=== PATIENT | female | born 1940 | race Caucasian/White ===

== ENCOUNTER 2020-04-18 10:19 | Outpatient (CLI) | payer MEDICARE, SELFPAY ==
--- NOTE | ~2020-04-18 | MM_ITS ---
EXAMINATION: MM screening chitra LT w quinten HISTORY: Screening left mammogram, history of right mastectomy TECHNIQUE: Craniocaudal and mediolateral oblique 3-D tomosynthesis images were obtained and synthetic 2-D images were generated. CAD analysis was submitted and interpreted. COMPARISON: 01/13/2019, 01/09/2018, 12/30/2016 BREAST PARENCHYMAL COMPOSITION: There are scattered areas of fibroglandular density. FINDINGS: There is no evidence of suspicious mass, calcification, or architectural distortion to sugg est malignancy. There has been no suspicious interval change. IMPRESSION: 1. No mammographic evidence of malignancy. 2. Recommend routine screening mammography in one year. BI-RADS Category 1: Negative Reviewed, dictated and finalized at location A.
== END 2020-04-18 10:20 | disposition home or self-care (01) ==
PROVIDERS: PCP Family Medicine; Visit Provider Internal Medicine Hematology & Oncology
DX: Z12.31 Encounter for screening mammogram for malignant neoplasm of breast (principal)
CPT/HCPCS: 77063; 77067

== ENCOUNTER 2020-10-31 10:55 | Outpatient (CLI) | payer MEDICARE, SELFPAY ==
[2020-10-31 11:13] LABS: Basophils Percent Auto 0.6 % (0.2-1.2); Eosinophils Absolute Auto 0.1 K/mm3 (0-0.3); Eosinophils Percent Auto 1.2 % (0-4.4); Hemoglobin 14.2 g/dL (12.0-15.0); Immature Granulocyte Absolute 0.01 K/mm3 (0.00-0.031); Immature Granulocyte Percent A 0.1 % (0-0.5); Lymphocytes Absolute Auto 1.62 K/mm3 (0.9-3.2); Lymphocytes Percent Auto 23.6 % (18.3-44.2); Mean Corpuscular HGB Conc 32.3 g/dl (32-36); Mean Corpuscular Hemoglobin 30.1 pg (26-34); Mean Corpuscular Volume 93.4 fl (80-100); Mean Platelet Volume 10.9 fl (7.4-10.4); Monocytes Absolute Auto 0.5 K/mm3 (0.1-0.6); Monocytes Percent Auto 7.9 % (2.6-8.5); Neutrophils Absolute Auto 4.6 K/mm3 (1.3-6.7); Neutrophils Percent Auto 66.6 % (45.5-73.1); Platelet Count Result 270 k/mm3 (150-375); Red Blood Count 4.71 M/mm3 (4.2-5.4); Red Cell Distribution Width 12.9 % (11.5-14.5); White Blood Count 6.9 K/mm3 (4.5-10.0)
[2020-10-31 11:18] LABS: Blood Urea Nitrogen 17 mg/dL (8-26); Carbon Dioxide 31 mmol/L (22-30); Chloride 102 mmol/L (98-109); Estimated Glomerular Filt Rate > 60; Glucose 71 mg/dL (70-105); Sodium 142 mmol/L (138-146)
[2020-10-31 12:44] LABS: Alanine Aminotransferase 23 U/L (4-35); Albumin Level 4.5 g/dL (3.5-5.1); Alkaline Phosphatase 55 U/L (38-126); Anion Gap 7 mmol/L (8-16); Aspartate Amino Transferase 27 U/L (14-36); Bilirubin,Total 0.4 mg/dL (0.2-1.3); Blood Urea Nitrogen 17 mg/dL (7-17); Calcium 10.2 mg/dL (8.4-10.2); Carbon Dioxide 32 mmol/L (22-30); Chloride 103 mmol/L (98-107); Estimated Glomerular Filt Rate > 60; Glucose 70 mg/dL (65-105); Potassium 4.3 mmol/L (3.4-5.0); Sodium 142 mmol/L (137-145)
[2020-11-04 06:35] LABS: CA 15-3 14 U/mL (<32)
== END 2020-10-31 10:56 | disposition home or self-care (01) ==
LOC: ANHLAB 10:56
PROVIDERS: PCP Family Medicine; Visit Provider Internal Medicine Hematology & Oncology
DX: Z85.3 Personal history of malignant neoplasm of breast (principal); C50.911 Malignant neoplasm of unspecified site of right female breast
CPT/HCPCS: 36415; 80048; 80053; 85025; 86300

== ENCOUNTER 2021-04-19 09:40 | Outpatient (CLI) | payer MEDICARE, SELFPAY ==
--- NOTE | ~2021-04-19 | MM_ITS ---
EXAMINATION: MM screening chitra LT w quinten HISTORY: Screening left mammogram, history of right mastectomy TECHNIQUE: Craniocaudal and mediolateral oblique 3-D tomosynthesis images were obtained and synthetic 2-D images were generated. CAD analysis was submitted and interpreted. COMPARISON: 04/18/2020, 01/13/2019, 01/09/2018 BREAST PARENCHYMAL COMPOSITION: There are scattered areas of fibroglandular density. FINDINGS: There is no evidence of suspicious mass, calcification, or architectural distortion to sugg est malignancy. There has been no suspicious interval change. IMPRESSION: 1. No mammographic evidence of malignancy. 2. Recommend routine screening mammography while the patient remains in good health. BI-RADS Category 1: Negative Reviewed, dictated and finalized at location A. IMPRESSION: 1. No mammographic evidence of malignancy. 2. Recommend routine screening mammography while the patient remains in good he alth. BI-RADS Category 1: Negative
== END 2021-04-19 09:41 | disposition home or self-care (01) ==
LOC: ANHIMG 09:43
PROVIDERS: PCP Family Medicine; Visit Provider Internal Medicine Hematology & Oncology
DX: Z12.31 Encounter for screening mammogram for malignant neoplasm of breast (principal)
CPT/HCPCS: 77063; 77067

== ENCOUNTER 2021-07-24 10:12 | Outpatient (CLI) | payer MEDICARE, SELFPAY ==
--- NOTE | ~2021-07-24 | DEXA_ITS ---
Bone Density Report Name: Kirstin Reyez Age: 81 Sex: Female Ethnicity: White Date of : 1940 Indication: osteopenia; monitoring treatment; height loss; prior fracture; cancer; hysterectomy; postmenopausal Referring Provider: Wes Luque Study: Bone densitometry was performed. Exam Date: July 24, 2021 Accession number: [id number] Bone Density: Region BMD T-score Z-score Classification AP Spine (L2, L3) 1.008 -0.5 2.4 Normal Femoral Neck (Left) 0.612 -2.1 0.3 Osteopenia Total Hip (Left) 0.773 -1.4 0.9 Osteopenia Total Hip Bilateral Avg 0.778 -1.4 0.9 Osteopenia Femoral Neck (Right) 0.570 -2.5 -0.1 Osteoporosis Total Hip (Right) 0.782 -1.3 0.9 Osteopenia World Health Organization criteria for BMD impression classify patients as: Normal (T-score at or above -1.0), Osteopenia (T-score between -1.0 and -2.5), or Osteoporosis (T-score at or below -2.5). 10-year Fracture Risk: FRAX not reported because: Some T-score for Spine Total or Hip Total or Femoral Neck at or below -2.5 Previous Exams: Region Exam Age BMD T-score BMD Change BMD Change Date g/cm2 vs Baseline vs Previous AP Spine(L2, L3) 07/24/2021 81 1.008 -0.5 0.115(12.9%)# 0.120(13.5%)* 05/02/2017 77 0.888 -1.5 -0.005(-0.5%)# -0.005(-0.5%)# 08/31/2010 70 0.893 -1.5 Total Hip(Left) 07/24/2021 81 0.773 -1.4 -0.063(-7.6%)# 0.023(3.1%) 05/02/2017 77 0.750 -1.6 -0.086(-10.3%) -0.054(-6.8%)# 08/12/2013 73 0.804 -1.1 -0.032(-3.8%)# -0.032(-3.8%)# 08/31/2010 70 0.836 -0.9 Total Hip(Right) 07/24/2021 81 0.782 -1.3 -0.082(-9.4%)# 0.050(6.9%)* 05/02/2017 77 0.731 -1.7 -0.132(-15.3%) -0.099(-11.9%) 08/12/2013 73 0.830 -0.9 -0.033(-3.8%)# -0.033(-3.8%)# 08/31/2010 70 0.863 -0.6 *Denotes significance at 95% confidence level, LSC for AP Spine = 0.022 g/cm2, LSC for Total Hip = 0.027 g/cm2 Clinical Information Provided by Patient: Has had a low trauma fracture Is being treated for osteoporosis Has used the following medications: Vitamin D Has the following medical conditions: Cancer, Hysterectomy Patient maximum height was 63.5 Menopause Age: 36 Onset of menses at age 14 Number of children 3 Impression: The patient has established osteoporosis, based on the Right Femoral Neck T-score and the existence of a prior fracture. The patient has risk factors, including: previous fracture. No significant bone loss was observed. Discussion:
== END 2021-07-24 10:13 | disposition home or self-care (01) ==
LOC: ANHIMG 10:15
PROVIDERS: PCP Family Medicine; Visit Provider Internal Medicine Hematology & Oncology
DX: M81.6 Localized osteoporosis [Lequesne] (principal); M85.852 Other specified disorders of bone density and structure, left thigh
CPT/HCPCS: 77080

== ENCOUNTER 2022-04-23 16:17 | Outpatient (CLI) | payer MEDICARE, SELFPAY ==
--- NOTE | ~2022-04-23 | MM_ITS ---
EXAMINATION: MM screening chitra LT w quinten HISTORY: Screening left mammogram, history of right mastectomy TECHNIQUE: Craniocaudal and mediolateral oblique 3-D tomosynthesis images were obtained and synthetic 2-D images were generated. CAD analysis was submitted and interpreted. COMPARISON: 04/19/2021, 04/18/2020, 01/13/2019 BREAST PARENCHYMAL COMPOSITION: There are scattered areas of fibroglandular density. FINDINGS: There is no suspicious mass, calcification, or architectural distortion to suggest malignan cy. There has been no suspicious interval change. IMPRESSION: 1. No mammographic evidence of malignancy. 2. Recommend routine screening mammography while the patient remains in good health. BI-RADS Category 1: Negative Reviewed, dictated and finalized at location A. IMPRESSION: 1. No mammographic evidence of malignancy. 2. Recommend routine screening mammography while the patient remains in good he alth. BI-RADS Category 1: Negative
== END 2022-04-23 16:18 | disposition home or self-care (01) ==
PROVIDERS: PCP Family Medicine; Visit Provider Internal Medicine Hematology & Oncology
DX: Z12.31 Encounter for screening mammogram for malignant neoplasm of breast (principal)
CPT/HCPCS: 77063; 77067

== ENCOUNTER 2022-10-21 18:33 | Observation (INO) | payer MEDICARE, SELFPAY ==
[2022-10-21] VITALS (24 sets, daily range): BP systolic 130–189; BP diastolic 66–94; PULSE 68–84; RESP 12–28; TEMP 36.6; O2SAT 94–100; BMI 22.0
--- NOTE | ~2022-10-21 | MR_ITS ---
EXAMINATION: MR brain/brain stem wo/w con DATE: 10/22/2022 10:23 INDICATION: Syncope. TECHNIQUE: Magnetic resonance imaging (MRI) of the brain and brainstem was performed without and with 10 mL MultiHance intravenous contrast. COMPARISON: None. FINDINGS: There is a 4.1 x 3.9 x 2.7 cm enhancing extra-axial mass inferior to the upper lobes at the midline, consistent with a meningioma. An area of decreased T2*weighted signal intensity in the mass may be calcification. There is no acute ischemic infarct or intracranial hemorrhage. There are scatt ered areas of nonspecific increased T2-weighted signal intensity in the cerebral white matter, which is within normal limits for the patient's age. The ventricles are normal in size. There is mucosal th ickening in the paranasal sinuses. The orbits are normal. The mastoid air cells are normal. 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 Reviewed, dictated and finalized at location A. IVING COORDINATOR
--- NOTE | ~2022-10-21 | US_ITS ---
EXAMINATION: US carotid duplex BI DATE: 10/22/2022 10:45 INDICATION: Syncope. TECHNIQUE: Grayscale, color Doppler, and pulsed Doppler images of the cervical carotid arteries were obtained. The degree of vessel stenosis is placed in one of the following categories: normal, <50%, 5 0-69%, >=70% but less than near-occlusion, near-occlusion, or total occlusion. Note that percent sten osis relative to normal distal artery lumen diameter is indirectly measured from velocity measurement s as described by Juan, et al. Radiology 2003; 229:340-346. COMPARISON: None. FINDINGS: RIGHT: The right common carotid artery (CCA) peak systolic velocity (PSV) is 111 cm/s. The right internal ca rotid artery (ICA) PSV is 78 cm/s. The right ICA end-diastolic velocity (EDV) is 16 cm/s. The right I CA/CCA PSV ratio is 0.7. Grayscale and color Doppler images yield an estimate of <50% diameter reduct ion from plaque in the ICA. There is antegrade flow in the right vertebral artery. LEFT: The left CCA PSV is 125 cm/s. The left ICA PSV is 85 cm/s. The left ICA EDV is 17 cm/s. The left ICA/ CCA PSV ratio is 0.7. Grayscale and color Doppler images yield an estimate of <50% diameter reduction from plaque in the ICA. There is antegrade flow in the left vertebral artery. IMPRESSION: 1. <50% stenosis in the right internal carotid artery. 2. <50% stenosis in the left internal carotid artery. Reviewed, dictated and finalized at location A. ST PRODUCTS GATHERER
--- NOTE | ~2022-10-21 | XR_ITS ---
EXAMINATION: XR chest 1V portable Exam Date/Time: 10/21/2022 19:09 RETAIL LEASING AGENT HISTORY: syncope Comparison: 11/24/2014. RESULT: Lines, tubes, and devices: Status post vertebroplasty. Lungs and pleura: Low lung volumes. Mild crowding. Senescent changes. Cardiomediastinal silhouette: Stable. Other: No acute osseous or upper abdominal finding. IMPRESSION: No acute cardiopulmonary process. Reviewed, dictated and finalized at location K. [place] LEASING AGENT
--- NOTE | 2022-10-21 18:35 | ECG_ITS ---
Measurements Intervals [place] Rate: 75 P: 45 FL: 160 QRS: -9 QRSD: 96 T: 27 QT: 382 QTc: 428 Interpretive Statements SINUS RHYTHM POSSIBLE LEFT ATRIAL ENLARGEMENT [-0.1mV P-WAVE IN V1/V2] POSSIBLE LEFT VENTRICULAR HYPERTROPHY [VOLTAGE CRITERIA PLUS LAE OR QRS WIDENING] NO PREVIOUS ECG AVAILABLE FOR COMPARISON Electronically Signed On 10-22-2022 11:31:06 OVERLOCK SEWING MACHINE OPERATOR by Jessica Hill M.D.
--- NOTE | 2022-10-21 19:09 | ED.SYNCOPE ---
HPI - Syncope General Chief Complaint: Syncope Stated Complaint: syncope Time Seen by Provider: 10/21/22 18:59 History of Present Illness HPI narrative: Patient is an 82-year-old female with a history of dementia, hyperlipidemia, hypertension presenting with syncope. Most of the history is gathered from the patient's family who is at bedside. They state that she had a syncopal episode this morning that was witnessed by staff at her nursing facility. States that at that time a attributed it to dehydration. States that the room was very warm at this time. Patient then had another witnessed syncopal event while laying in bed this evening. She reportedly suddenly lost consciousness and her eyes rolled in the back of her head. This episode resolved in less than a minute. Currently, the patient denies complaints. She is A&O x1 which is her baseline. Related Data Home Medications Medication Instructions Recorded Confirmed acetaminophen 500 mg tablet 1,000 mg PO Q6H PRN Pain 10/21/22 10/21/22 (Acetaminophen Extra Strength) anastrozole 1 mg tablet 1 mg PO DAILY 10/21/22 10/21/22 atorvastatin 10 mg tablet 20 mg PO DAILY 10/21/22 10/21/22 cholecalciferol (vitamin D3) 50 50 mcg PO BID 10/21/22 10/21/22 mcg (2,000 unit) capsule cyanocobalamin (vitamin B-12) 500 500 mcg PO DAILY 10/21/22 10/21/22 mcg tablet donepezil 10 mg tablet 10 mg PO HS 10/21/22 10/21/22 magnesium 200 mg tablet 400 mg PO DAILY 10/21/22 10/21/22 melatonin 3 mg tablet 3 mg PO HS PRN Insomnia 10/21/22 10/21/22 memantine 10 mg tablet 10 mg PO BID 10/21/22 10/21/22 omeprazole 20 mg capsule,delayed 20 mg PO HS 10/21/22 10/21/22 release sertraline 25 mg tablet 25 mg PO DAILY 10/21/22 10/21/22 Allergies Allergy/AdvReac Type Severity Reaction Status Date / Time alendronate sodium Allergy Unknown Rash Verified 02/19/22 11:25 codeine Allergy Unknown Unknown Verified 02/19/22 11:25 tamoxifen Allergy Unknown Unknown Verified 02/19/22 11:25 Review of Systems Review of Systems: ROS unobtainable: Yes other (underlying dementia) PMFSH Past Medical History Medical History Adult BMI 19-24 kg/sq m Family History Family History Mother Cerebrovascular accident Sibling Family history of diabetes mellitus in first degree relative Family history of malignant neoplasm of breast in first degree relative Family history of heart disease in male family member before age 55 Emphysema lung Father Family history of heart disease in male family member before age 55 Social History Social History Smoking status: Never smoker Second hand tobacco smoke exposure: Yes Alcohol intake: never Substance use: never Substance use type: does not use Living arrangements: alone Occupation/Education: retired 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 HEAD: Normocephalic, atraumatic. EYES: PERRLA and EOMI. ENT: Nares clear, no rhinorrhea or epistaxis. Mucous membranes moist. NECK: Supple. CHEST: Clear to auscultation. No respiratory distress. HEART: Regular rate and rhythm. No murmur heard. Normal peripheral pulses. ABDOMEN: Soft, nontender, nondistended EXTREMITIES: Normal range of motion. No edema. SKIN: Warm, dry, no rash. NEURO: No focal deficits. Alert and oriented x1 which is baseline. PSYCH: Normal mood and affect. Course Vital Signs Vital signs: Vital Signs Pulse Rate 75 10/21/22 18:46 Respiratory Rate 12 10/21/22 18:46 Pulse Oximetry 96 10/21/22 18:46 Temperature 97.2 F L 10/22/22 20:57 Pulse Rate 64 10/22/22 20:57 Respiratory Rate 16 10/22/22 20:57 Blood Pressure 145/72 H 10/22/22
[2022-10-21 19:37] LABS: Basophils Percent Auto 0.2 % (0.2-1.2); Eosinophils Absolute Auto 0.1 K/mm3 (0-0.3); Eosinophils Percent Auto 0.7 % (0-4.4); Immature Granulocyte Absolute 0.02 K/mm3 (0.00-0.031); Immature Granulocyte Percent A 0.2 % (0-0.5); Lymphocytes Absolute Auto 1.31 K/mm3 (0.9-3.2); Lymphocytes Percent Auto 15.3 % (18.3-44.2); Mean Corpuscular HGB Conc 32.5 g/dl (32-36); Mean Corpuscular Hemoglobin 29.8 pg (26-34); Mean Corpuscular Volume 91.7 fl (80-100); Mean Platelet Volume 11.4 fl (7.4-10.4); Monocytes Percent Auto 11.3 % (2.6-8.5); Neutrophils Absolute Auto 6.2 K/mm3 (1.3-6.7); Neutrophils Percent Auto 72.3 % (45.5-73.1); Platelet Count Result 183 k/mm3 (150-375); Red Blood Count 4.36 M/mm3 (4.2-5.4); Red Cell Distribution Width 12.6 % (11.5-14.5); White Blood Count 8.6 K/mm3 (4.5-10.0)
[2022-10-21] MEDS: SODIUM CHLORIDE 0.9% IV 1,000 ML 999 ML IV CONT (19:40)
[2022-10-21 19:46] LABS: Partial Thromboplastin Time 26.4 SECONDS (22.3-36.8); Prothrombin Time 13.2 Seconds (11.1-14.7)
[2022-10-21 19:54] LABS: Alanine Aminotransferase 22 U/L (6-35); Albumin Level 4.2 g/dL (3.5-5.1); Alkaline Phosphatase 70 U/L (38-126); Anion Gap 7 mmol/L (8-16); Aspartate Amino Transferase 24 U/L (14-36); Bilirubin,Total 0.5 mg/dL (0.2-1.3); Blood Urea Nitrogen 16 mg/dL (7-17); Calcium 9.6 mg/dL (8.4-10.2); Carbon Dioxide 29 mmol/L (22-30); Chloride 103 mmol/L (98-107); Estimated Glomerular Filt Rate > 60; Glucose 109 mg/dL (65-110); Potassium 4.3 mmol/L (3.4-5.0); Sodium 139 mmol/L (137-145)
[2022-10-21 20:11] LABS: NT Pro B Type Natriuretic Pept 285 pg/mL (19.9-100); Troponin I < 0.012 ng/mL (0.000-0.034)
[2022-10-21 20:31] LABS: Appearance Urine Clear (Clear); Bacteria Urine None Seen /hpf; Bilirubin Urine Negative (Negative); Blood Urine 2+ (Negative); Color Urine Yellow (Yellow); Glucose Urine UA Negative (Negative); Ketones Urine Negative (Negative); Leukocyte Esterase Ur Trace LEU/UL (Negative); Nitrate Urine Negative (Negative); Non Pathogenic Casts 0-2; Protein Urine Negative (Negative); Specific Grav Ur 1.008 (1.001-1.035); Squamous Epithelial Cell Urine None seen /hpf (Few); Urobilinogen Urine 0.2 mg/dL (<2.0); WBC Urine 0-5 /hpf
[2022-10-21 20:39] LABS: Add Urine Microscopic? YES
--- NOTE | 2022-10-21 21:12 | PM.IMHP ---
H&P: HPI History of Present Illness Date/Time: 10/21/22 21:12 Chief Complaint: ALTERED MENTAL STATUS [facility] Past Medical History Medical History Adult BMI 19-24 kg/sq m Family History Family History Mother Cerebrovascular accident Sibling Family history of diabetes mellitus in first degree relative Family history of malignant neoplasm of breast in first degree relative Family history of heart disease in male family member before age 55 Emphysema lung Father Family history of heart disease in male family member before age 55 Social History Social History Smoking status: Never smoker Second hand tobacco smoke exposure: Yes Alcohol intake: never Substance use: never Substance use type: does not use Living arrangements: alone Occupation/Education: retired 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, 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 Spiritual care concerns: No Meds Home Medications and Allergies Home Medications Medication Instructions Recorded Confirmed Type benazepril 10 mg tablet 10 mg PO DAILY #90 tabs 08/05/22 10/21/22 Rx acetaminophen 500 mg tablet 1,000 mg PO Q6H PRN Pain 10/21/22 10/21/22 History (Acetaminophen Extra Strength) anastrozole 1 mg tablet 1 mg PO DAILY 10/21/22 10/21/22 History atorvastatin 10 mg tablet 20 mg PO DAILY 10/21/22 10/21/22 History cholecalciferol (vitamin D3) 50 50 mcg PO BID 10/21/22 10/21/22 History mcg (2,000 unit) capsule cyanocobalamin (vitamin B-12) 500 500 mcg PO DAILY 10/21/22 10/21/22 History mcg tablet donepezil 10 mg tablet 10 mg PO HS 10/21/22 10/21/22 History magnesium 200 mg tablet 400 mg PO DAILY 10/21/22 10/21/22 History melatonin 3 mg tablet 3 mg PO HS PRN Insomnia 10/21/22 10/21/22 History memantine 10 mg tablet 10 mg PO BID 10/21/22 10/21/22 History omeprazole 20 mg capsule,delayed 20 mg PO HS 10/21/22 10/21/22 History release sertraline 25 mg tablet 25 mg PO DAILY 10/21/22 10/21/22 History Allergies Allergy/AdvReac Type Severity Reaction Status Date / Time alendronate sodium Allergy Unknown Rash Verified 02/19/22 11:25 codeine Allergy Unknown Unknown Verified 02/19/22 11:25 tamoxifen Allergy Unknown Unknown Verified 02/19/22 11:25 Vital Signs Vital Signs - 24 hr 10/21/22 19:26 10/21/22 18:46 10/21/22 19:00 Pulse Rate 84 75 78 Respiratory Rate 12 17 Blood Pressure Pulse Oximetry 96 97 10/21/22 19:23 10/21/22 19:30 10/21/22 19:46 Pulse Rate 74 70 69 Respiratory Rate 19 22 H 18 Blood Pressure Pulse Oximetry 96 95 96 10/21/22 20:03 10/21/22 20:19 10/21/22 20:30 Pulse Rate 70 77 74 Respiratory Rate 14 18 13 Blood Pressure 130/66 Pulse Oximetry 97 100 97 10/21/22 20:50 10/21/22 21:06 Pulse Rate 74 81 Respiratory Rate 26 H 28 H Blood Pressure 189/87 H Pulse Oximetry 97 97 Exam Const: General: comfortable, no acute distress, well developed, alert, awake and average body habitus Nutritional Appearance: average body habitus Orientation/consciousness: patient oriented x3 HENMT: Head: normal to inspection, normocephalic and atraumatic Ears: hearing grossly normal bilaterally Face/Nose/Sinus: normal facial exam Face and sinus: normal facial exam Eyes: General: appearance normal, both eyes and all related structures Pupils: Equal, round and reactive pupils present EOM: EOMs intact bilaterally Neck: Neck: full ROM, no lymphadenopathy and no JVD Thyroid: thyroid normal Lymphatic: no lymphadenopathy noted Resp: Effort & Inspection: normal respiratory effort and able to speak in complete sentences Auscultation: clear to auscultation bilaterally Cardio: Jugular venous distension: no JVD Rate: regular rate Rhythm: regular rhythm Heart sounds: S1 normal heart sound present and S2 normal heart erna
[2022-10-21 22:20] LABS: SARS-CoV-2 RNA PCR Negative
[2022-10-21 23:10] LABS: Troponin I < 0.012 ng/mL (0.000-0.034)
--- NOTE | 2022-10-21 23:57 | PC.NURSE ---
This patient, Kirstin Reyez, was admitted to Medical Room 347-01. Patient/family oriented to hospital policies and general routines including ID bracelet, bed and alarms, visiting hours, pain management, procedures, bathroom and other care routines, personal items, smoking policy, room service/diet, and visiting hours. Information on how to activate the Rapid Response Team has been discussed. Patient/Family are encouraged to report perceived risks to care and to ask questions if they do not understand what they are told or what they should do.
[2022-10-22] VITALS (8 sets, daily range): BP systolic 145–168; BP diastolic 70–72; PULSE 64–86; RESP 16–18; TEMP 36.2–36.7; O2SAT 96–98
--- NOTE | 2022-10-22 | ECHO_ITS ---
Patient Info Name: Kirstin Reyez Age: 82 years : 1940 Gender: Female Ht: 64 in Wt: 128 lbs BSA: 1.62 m2 HR: 68 bpm BP: 158 / 72 mmHg Heart Rhythm: Sinus Rhythm Technical Quality: Fair Exam Date: 10/22/2022 7:39 AM Exam Location: [facility] Pulmonary Patient Status: Inpatient Admit Date: 10/21/2022 Staff Ordering Physician: Sudheer Blackmon MD Management Psychologist: Minerva Chase RDCS Attending Provider: Sudheer Blackmon MD Referring Physician: Neymar HALEY; Exam Type: CA echo doppler color flow Study Info Indications R55 - Syncope and collapse Complete two-dimensional, color flow and Doppler transthoracic echocardiogram is performed. Summary 1. Complete two-dimensional, color flow and Doppler transthoracic echocardiogram is performed. 2. Left ventricular chamber dimension is normal. 3. Left ventricular systolic function is normal, estimated at 65-70%. 4. The left ventricular diastolic function is grade I diastolic dysfunction. 5. Right ventricular systolic function is normal. 6. There is moderate aortic valve sclerosis. 7. There is mild to moderate aortic valve regurgitation. 8. The mitral valve has thickened leaflets. 9. There is mild mitral valve regurgitation. 10. There is mild tricuspid valve regurgitation. 11. There is mild to moderate pulmonic regurgitation. 12. Normal inferior vena cava with >50% collapse upon inspiration consistent with normal right atrial pressure, 3 mmHg. Left Ventricle Left ventricular chamber dimension is normal. Left ventricular systolic function is normal, estimated at 65-70%. There is no increased left ventricular wall thickness. The left ventricular diastolic function is grade I diastolic dysfunction. Right Ventricle Right ventricular chamber dimension is normal. Right ventricular systolic function is normal. Left Atria Left atrial chamber dimension is normal. Right Atria Right atrial chamber dimension is normal. Atrial Septum Intact interatrial septum visualized by color flow imaging. Aortic Valve The aortic valve is trileaflet. There is moderate aortic valve sclerosis. There is no aortic valve stenosis. There is mild to moderate aortic valve regurgitation. Pulmonic Valve The pulmonic valve is not well visualized. There is mild to moderate pulmonic regurgitation. Mitral Valve The mitral valve has thickened leaflets. There is no mitral valve stenosis. There is mild mitral valve regurgitation. Tricuspid Valve There is mild tricuspid valve regurgitation. Pericardium/Pleural There is no pericardial effusion. Inferior Vena Cava Normal inferior vena cava with >50% collapse upon inspiration consistent with normal right atrial pressure, 3 mmHg. Aorta The aortic root size at the sinus of Valsalva is normal. Left Ventricular Outflow Tract Name Value Normal LVOT 2D LVOT Diameter 2.0 cm LVOT Doppler LVOT Peak Gradient 3 mmHg LVOT Mean Gradient 1 mmHg LVOT VTI 21 cm LVOT VTI/AV VTI Ratio 0.6 L
[2022-10-22 02:25] LABS: Troponin I < 0.012 ng/mL (0.000-0.034)
[2022-10-22] MEDS: ANASTROZOLE (*CHEMO) 1 MG TABLET PO (08:52)
[2022-10-22] MEDS: MEMANTINE 10 MG TABLET PO ×2 (08:52→17:58)
[2022-10-22] MEDS: ATORVASTATIN 10 MG TABLET 20 MG PO (08:52)
[2022-10-22] MEDS: CHOLECALCIFEROL 1,000 UNITS TABLET 2000 UNITS PO ×2 (08:52→17:58)
[2022-10-22] MEDS: CYANOCOBALAMIN 500 MCG TABLET PO (08:53)
[2022-10-22] MEDS: lisinopriL 10 MG TABLET PO (08:53)
[2022-10-22] MEDS: SERTRALINE HCL 25 MG TABLET PO (08:53)
--- NOTE | 2022-10-22 10:53 | PM.IMPN ---
Progress Note: A&P Assessment and Plan (1) Dementia with behavioral disturbance: Code(s): F03.91 - Unspecified dementia, unspecified severity, with behavioral disturbance Status: Acute Assessment and Plan: Appears to be baseline (2) Mixed hyperlipidemia: Code(s): E78.2 - Mixed hyperlipidemia Status: Acute Assessment and Plan: Continue home meds (3) Essential hypertension: Code(s): I10 - Essential (primary) hypertension Status: Acute Assessment and Plan: Monitor blood pressure (4) Altered mental status: Code(s): R41.82 - Altered mental status, unspecified Status: Acute (5) Syncope: Code(s): R55 - Syncope and collapse Status: Acute Assessment and Plan: Workup pending. Initial MRI did show possible brain mass which looks benign. Will expand MRI to include contrast in await results. No more syncopal episodes. If workup negative can be discharged. Subjective Date/time seen: 10/22/22 10:53 No new complaints. No new syncopal episodes overnight Exam Const: General: comfortable, no acute distress, well developed, alert, awake and average body habitus Nutritional Appearance: average body habitus Orientation/consciousness: patient oriented x3 HENMT: Head: normal to inspection, normocephalic and atraumatic Ears: hearing grossly normal bilaterally Face/Nose/Sinus: normal facial exam Face and sinus: normal facial exam Eyes: General: appearance normal, both eyes and all related structures Pupils: Equal, round and reactive pupils present EOM: EOMs intact bilaterally Neck: Neck: full ROM, no lymphadenopathy and no JVD Thyroid: thyroid normal Lymphatic: no lymphadenopathy noted Resp: Effort & Inspection: normal respiratory effort and able to speak in complete sentences Auscultation: clear to auscultation bilaterally Cardio: Jugular venous distension: no JVD Rate: regular rate Rhythm: regular rhythm Heart sounds: S1 normal heart sound present and S2 normal heart sound present : General: Yes deferred Skin: Rashes: no rashes Wounds: no wounds Neuro: General: patient oriented x3 and CN's II-XI intact bilaterally Cranial nerves: Yes CN's II-XII intact bilaterally and Yes Equal, round and reactive pupils present Cognition (Neuro): normal cognition Speech: normal speech Gait exam (Neuro): Normal gait present Motor exam (neuro): 5/5 motor strength present throughout Extrem: General: normal to inspection, full ROM, no joint enlargement and no pedal edema Objective Data Vital Signs Vital Signs: Vital Signs - 24 hr 10/21/22 19:26 10/21/22 18:46 10/21/22 19:00 Temperature Pulse Rate 84 75 78 Respiratory Rate 12 17 Blood Pressure Pulse Oximetry 96 97 Oxygen Delivery 10/21/22 19:23 10/21/22 19:30 10/21/22 19:46 Temperature Pulse Rate 74 70 69 Respiratory Rate 19 22 H 18 Blood Pressure Pulse Oximetry 96 95 96 Oxygen Delivery 10/21/22 20:03 10/21/22 20:19 10/21/22 20:30 Temperature Pulse Rate 70 77 74 Respiratory Rate 14 18 13 Blood Pressure 130/66 Pulse Oximetry 97 100 97 Oxygen Delivery 10/21/22 20:50 10/21/22 21:06 10/21/22 21:15 Temperature Pulse Rate 74 81 69 Respiratory Rate 26 H 28 H 19 Blood Pressure 189/87 H Pulse Oximetry 97 97 97 Oxygen Delivery 10/21/22 21:16 10/21/22 21:31 10/21/22 21:32 Temperature Pulse Rate 70 72 77 Respiratory Rate 21 H 22 H 18 Blood Pressure 173/82 H 167/77 H Pulse Oximetry 97 96 98 Oxygen Delivery 10/21/22 21:48 10/21/22 22:02 10/21/22 22:23 Temperature Pulse Rate 72 73 74 Respiratory Rate 16 18 18 Blood Pressure Pulse Oximetry 96 95 96 Oxygen Delivery 10/21/22 22:30 10/21/22 22:32 10/21/22 22:45 Temperature Pulse Rate 73 81 71 Respiratory Rate 20 17 22 H Blood Pressure 164/79 H Pulse Oximetry 94 95 96 Oxygen Delivery 10/21/22 22:47 10/21/22 23:49 10/21/22 23:54 Temperature
--- NOTE | 2022-10-22 14:59 | WPDNEUROSGCN ---
Assessment and Plan Assessment and plan (1) Benign neoplasm of meningioma (cerebral): Code(s): D32.0 - Benign neoplasm of cerebral meninges Status: Acute Assessment and Plan: Kirstin Reyez is a very pleasant 82-year-old female with a history of dementia who presents with 2 episodes that have been turned syncope with brief loss of consciousness within the last 24-48 hours. These episodes occur within the setting of a new finding of a 4 cm anterior skull base lesion with radiographic characteristics most consistent with meningioma. The patient has a history of breast cancer but without evidence of metastatic disease. The finding is most likely a benign tumor, most likely a low-grade meningioma. I have discussed with the patient and her son the most likely clinical diagnosis and the options for management. We discussed very generally options including surgical resection, radiation, or serial clinical and radiographic assessment Particularly at the age of 82 with baseline dementia, I would not advocate for surgical intervention or even, at this juncture, radiation therapy. There has been no evidence to suggest that the lesion is growing. There are changes that are suggestive of calcifications within the mass it is not clear, however, whether the ?syncopal episodes ?are related to the mass lesion. It would be reasonable to consider a low dose of seizure medication, Keppra 500 mg b.i.d. for seizure prior the prophylaxis. It would also be reasonable to discuss this medication, its indications, and long-term plan with the neurology team. In terms of management of the tumor I would recommend outpatient follow-up in the neurosurgical clinic. The patient will need to undergo repeat MRI of the brain with and without contrast in approximately 3 months time to ensure no short-term and overall growth. Would recommend follow-up with my partner Dr. Tamia Liz who has a particular interest in Neuro Surgical Oncology Review of Systems Review of Systems: All systems reviewed & are unremarkable except as noted in HPI and below (HPI and assessment and plan) [facility] Past Medical History Medical History Adult BMI 19-24 kg/sq m Family History Family History Mother Cerebrovascular accident Sibling Family history of diabetes mellitus in first degree relative Family history of malignant neoplasm of breast in first degree relative Family history of heart disease in male family member before age 55 Emphysema lung Father Family history of heart disease in male family member before age 55 Social History Social History Smoking status: Never smoker Second hand tobacco smoke exposure: Yes Alcohol intake: never Substance use: never Substance use type: does not use Living arrangements: alone Occupation/Education: retired 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, 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 Spiritual care concerns: No Meds Home Medications and Allergies Home Medications Medication Instructions Recorded Confirmed Type benazepril 10 mg tablet 10 mg PO DAILY #90 tabs 08/05/22 10/21/22 Rx acetaminophen 500 mg tablet 1,000 mg PO Q6H PRN Pain 10/21/22 10/21/22 History (Acetaminophen Extra Strength) anastrozole 1 mg tablet 1 mg PO DAILY 10/21/22 10/21/22 History atorvastatin 10 mg tablet 20 mg PO DAILY 10/21/22 10/21/22 History cholecalciferol (vitamin D3) 50 50 mcg PO BID 10/21/22 10/21/22 History mcg (2,000 unit) capsule cyanocobalamin (vitamin B-12) 500 500 mcg PO DAILY 10/21/22 10/21/22 History mcg tablet donepezil 10 mg tablet 10 mg PO HS 10/21/22 10/21/22 History magnesium 200 mg tablet 400 mg PO DAILY 10/21/22 10/21/22 History melatonin 3 mg tablet 3 mg PO HS PRN Insomnia 10/21/22 10/21/22 History memantine
[2022-10-22] MEDS: MELATONIN 3 MG TABLET PO (20:03)
[2022-10-22] MEDS: PANTOPRAZOLE 40 MG TABLET PO (20:03)
[2022-10-22] MEDS: DONEPEZIL HCL 10 MG TABLET PO (20:03)
[2022-10-23] VITALS: PULSE 62
[2022-10-23 04:00] VITALS: PULSE 56
[2022-10-23 05:42] VITALS: BP 124/58; PULSE 65; RESP 16; TEMP 36.8; O2SAT 95
[2022-10-23] MEDS: ATORVASTATIN 10 MG TABLET 20 MG PO (08:51)
[2022-10-23] MEDS: MEMANTINE 10 MG TABLET PO (08:51)
[2022-10-23] MEDS: CHOLECALCIFEROL 1,000 UNITS TABLET 2000 UNITS PO (08:51)
[2022-10-23] MEDS: CYANOCOBALAMIN 500 MCG TABLET PO (08:51)
[2022-10-23] MEDS: MAGNESIUM OXIDE 400 MG TABLET PO (08:51)
[2022-10-23] MEDS: ANASTROZOLE (*CHEMO) 1 MG TABLET PO (08:51)
[2022-10-23] MEDS: SERTRALINE HCL 25 MG TABLET PO (08:51)
[2022-10-23] MEDS: lisinopriL 10 MG TABLET PO (08:51)
[2022-10-23 09:00] VITALS: PULSE 53
[2022-10-23 12:00] VITALS: PULSE 61
[2022-10-23 14:00] VITALS: BP 133/58; PULSE 63; RESP 20; TEMP 36.3; O2SAT 98
--- NOTE | 2022-10-23 14:09 | PM.DS ---
DS: Admitting Diagnosis Discharge Date 10/23/2022 Admitting Diagnosis syncopal episode DS: Discharge Diagnosis Discharge Diagnosis (1) Dementia with behavioral disturbance: Code(s): F03.91 - Unspecified dementia, unspecified severity, with behavioral disturbance Status: Acute Assessment and Plan: Appears to be baseline (2) Mixed hyperlipidemia: Code(s): E78.2 - Mixed hyperlipidemia Status: Acute Assessment and Plan: Continue home meds (3) Essential hypertension: Code(s): I10 - Essential (primary) hypertension Status: Acute Assessment and Plan: Monitor blood pressure (4) Altered mental status: Code(s): R41.82 - Altered mental status, unspecified Status: Acute (5) Syncope: Code(s): R55 - Syncope and collapse Status: Acute Assessment and Plan: Workup pending. Initial MRI did show possible brain mass which looks benign. Will expand MRI to include contrast in await results. No more syncopal episodes. If workup negative can be discharged. DS: Summary Hospital Course Reason for hospitalization: This is an 82-year-old female with past medical history significant for dementia, GERD, hypertension.? Patient was brought to the emergency room due to syncopal episode in 1 occasion while patient was taking a shower in the 2nd location patient was laying in bed and had a brief episode of unresponsiveness where her eyes rolled to the back.? Patient at the time of my visit she is awake alert oriented to person and place but has no recollection of events.? Most of the history has has been obtained from her son and daughter who are at bedside and From the emergency room.? Patient has been in her usual state of health according to her son and daughter she denies any discomfort or pain at the present time.? Preliminary workup has been essentially nonrevealing.? Patient is being placed in observation for further evaluation management and treatment. Hospital Course: patient 79-year-old female was brought emergency department with syncopal episode patient had a CT scan of the head which showed new finding of a 4 cm anterior skull base lesion with radiographic characteristics most consistent with meningioma. patient was seen by Neurosurgery does not suspect cause of patient's syncopal episode, and did not recommend any further workup, will discharge the patient to assisted living patient will follow-up with Neurosurgery as outpatient for further evaluation, patient remains clinically stable Time Spent with Patient Time attestation: Total time spent providing and/or coordinating discharge services: Exam Narrative: elderly frail Patient is comfortable, NAD HEENT: eyes are clear and none icteric LUNGS:CTA HEART: RR S1S2 ABD: BS+, Soft and nontender Lower extremities: no edema SKIN: nonjaundiced Neuro: grossly intact. Discharge Plan Discharge Attending physician on discharge: Jennie Bartlett Consulting providers: Tamia Toure ; Jessica Hill ; Trent Lehman ; Joel Dwyer V. ; Brad Zarate Discharging Clinician: Jennie Bartlett Patient Disposition: [facility]/Asst Living Activity: as tolerated Diet: heart healthy Discharge Instructions: Patient to follow-up with neurosurgery and primary care provider as soon as possible Patient Instructions: Antibiotic Form Stand Alone Forms: General Discharge Information Follow-up/Referrals: Tavon,JORDANA Perkins- [Primary Care Provider] - Tamia Liz MD [Physician] - Discharge Medications: Continued anastrozole 1 mg Tablet 1 mg PO DAILY melatonin 3 mg Tablet 3 mg PO HS PRN (Reason: Insomnia) acetaminophen [Acetaminophen Extra Strength] 500 mg Tablet 1,000 mg PO Q6H PRN (Reason: Pain) cyanocobalamin (vitamin B-12) 500 mcg Tablet 500 mcg PO DAILY sertraline 25 mg Tablet 25 mg PO DAILY magnesium 200 mg Tablet 400 m
[2022-10-23 15:19] LABS: EDCOVIDSCREEN Negative (Negative)
== END 2022-10-23 17:00 ==
LOC: ANHED 18:59 → ANH3MED 10-22 22:51
PROVIDERS: Admitting Provider Internal Medicine; Emergency Provider Emergency Medicine; PCP Nurse Practitioner Family; Visit Provider Family Medicine
DX: R55 Syncope and collapse (principal); F03.918 Unspecified dementia, unspecified severity, with other behavioral disturbance; E78.2 Mixed hyperlipidemia; I11.9 Hypertensive heart disease without heart failure; R41.82 Altered mental status, unspecified; I08.3 Combined rheumatic disorders of mitral, aortic and tricuspid valves; D32.0 Benign neoplasm of cerebral meninges; Z20.822 Contact with and (suspected) exposure to COVID-19; G47.00 Insomnia, unspecified; K21.9 Gastro-esophageal reflux disease without esophagitis; Z85.3 Personal history of malignant neoplasm of breast; Z77.22 Contact with and (suspected) exposure to environmental tobacco smoke (acute) (chronic); Z79.1 Long term (current) use of non-steroidal anti-inflammatories (NSAID); Z79.899 Other long term (current) drug therapy; Z80.3 Family history of malignant neoplasm of breast; Z82.49 Family history of ischemic heart disease and other diseases of the circulatory system
CPT/HCPCS: 36415; 70553; 71045; 80053; 81001; 83880; 84484; 85025; 85610; 85730; 87426; 93005; 93306; 93880; 96360; 96361; 97161; 97165; 99285; A9270; A9577; C9803; G0378; J7030; U0003; U0005

== ENCOUNTER 2023-05-15 15:40 | Outpatient (CLI) | payer MEDICARE, SELFPAY ==
--- NOTE | ~2023-05-15 | MM_ITS ---
EXAMINATION: MM screening chitra LT w quinten HISTORY: Screening TECHNIQUE: Craniocaudal and mediolateral oblique 3-D tomosynthesis images were obtained and synthetic 2-D images were generated. CAD analysis was submitted and interpreted. COMPARISON: Comparison to multiple prior studies sequentially, with oldest reviewed study dated 01/09. BREAST PARENCHYMAL COMPOSITION: Breast composed of scattered areas of fibroglandular density FINDINGS: There are periareolar asymmetries of the left breast which have developed since prior studi es. There are no suspicious calcifications or architectural distortion. IMPRESSION: 1. Developing periareolar asymmetries of the left breast. 2. Additional mammographic views and possible breast ultrasound are recommended. BI-RADS Category 0: Incomplete: Needs additional imaging evaluation. Reviewed, dictated and finalized at location A. IMPRESSION: 1. Developing periareolar asymmetries of the left breast. 2. Additional mammographic views and possible breast ultrasound are recommended . BI-RADS Category 0: Incomplete: Needs additional imaging evaluation.
== END 2023-05-15 15:41 | disposition home or self-care (01) ==
PROVIDERS: PCP Family Medicine; Visit Provider Internal Medicine Hematology & Oncology
DX: Z12.31 Encounter for screening mammogram for malignant neoplasm of breast (principal); R92.8 Other abnormal and inconclusive findings on diagnostic imaging of breast
CPT/HCPCS: 77063; 77067

== ENCOUNTER 2023-06-06 12:32 | Outpatient (CLI) | payer MEDICARE, SELFPAY ==
--- NOTE | ~2023-06-06 | MMUS_ITS ---
EXAMINATION: MM diagnostic chitra LT w quinten, US breast LT limited HISTORY: Developing periareolar asymmetry is reported in left breast on 05/15/2023 screening mammogram TECHNIQUE: Additional 3-D tomosynthesis images of the left breast were performed and synthetic 2-D im ages were generated. CAD analysis was submitted and interpreted. High resolution subareolar and upper outer quadrant left breast ultrasound was performed. COMPARISON: 05/15/2023, 04/23/2022, 04/19/2021, 04/18/2020 left mammogram examinations BREAST PARENCHYMAL COMPOSITION: There are scattered areas of fibroglandular density. FINDINGS: MAMMOGRAPHIC FINDINGS: Possible 4 mm circumscribed mass in the anterior upper outer quadrant of the left breast. Otherwise no suspicious mass or architectural distortion, malignant calcification, skin thickening or retraction or significant new or developing density is detected. ULTRASOUND: 12:00 1 cm from nipple: Benign-appearing circumscribed 6.5 x 3.7 x 4.9 cm lymph node, without interna l vascularity or posterior shadowing. The cortex appears relatively uniform in echogenicity and thick ness. Normal fatty hilum. 2:00 3 cm from nipple: 2.1 x 2.5 mm circumscribed sonolucency without internal vascularity or posteri or shadowing, likely benign IMPRESSION: 1. Benign findings 2. Routine annual mammographic screening is recommended BI-RADS Category 2: Benign finding(s). Reviewed, dictated and finalized at location A. IMPRESSION: 1. Benign findings 2. Routine annual mammographic screening is recommended BI-RADS Category 2: Benign finding(s).
== END 2023-06-06 12:33 | disposition home or self-care (01) ==
LOC: ANHIMG 12:41
PROVIDERS: Visit Provider Internal Medicine Hematology & Oncology
DX: C50.911 Malignant neoplasm of unspecified site of right female breast (principal); R92.8 Other abnormal and inconclusive findings on diagnostic imaging of breast
CPT/HCPCS: 76642; 77061; 77065; G0279

== ENCOUNTER 2023-08-13 08:54 | Outpatient (CLI) | payer MEDICARE, SELFPAY ==
--- NOTE | ~2023-08-13 | DEXA_ITS ---
Bone Density Report Name: NARCISA BRADFORD Age: 83 Sex: Female Ethnicity: White Date of : 1940 Indication: osteopenia; monitoring treatment; height loss; prior fracture; cancer; postmenopausal Referring Provider: JACQUELINE BLOOM Study: Bone densitometry was performed. Exam Date: August 13, 2023 Accession number: [id number] Bone Density: Region BMD T-score Z-score Classification AP Spine(L2, L3) 1.021 -0.3 2.6 Normal Femoral Neck (Left) 0.662 -1.7 0.8 Osteopenia Total Hip (Left) 0.807 -1.1 1.2 Osteopenia Femoral Neck (Right) 0.583 -2.4 0.1 Osteopenia Total Hip (Right) 0.769 -1.4 0.9 Osteopenia Total Hip Mean 0.788 -1.3 1.1 Osteopenia World Health Organization criteria for BMD impression classify patients as: Normal (T-score at or above -1.0), Osteopenia (T-score between -1.0 and -2.5), or Osteoporosis (T-score at or below -2.5). 10-year Fracture Risk: FRAX not reported because: Prior hip or vertebral fracture Previous Exams: Region Exam Age BMD T-score BMD Change BMD Change Date g/cm2 vs Baseline vs Previous AP Spine (L2-L3) 08/13/2023 83 1.021 -0.3 0.133 (14.9%)* 0.013 (1.3%) 07/24/2021 81 1.008 -0.5 0.120 (13.5%)* 0.120 (13.5%)* 05/02/2017 77 0.888 -1.5 Total Hip(Left) 08/13/2023 83 0.807 -1.1 0.058 (7.7%)* 0.035 (4.5%)* 07/24/2021 81 0.773 -1.4 0.023 (3.1%) 0.023 (3.1%) 05/02/2017 77 0.750 -1.6 Total Hip(Right) 08/13/2023 83 0.769 -1.4 0.038 (5.2%)* -0.012 (-1.6%) 07/24/2021 81 0.782 -1.3 0.050 (6.9%)* 0.050 (6.9%)* 05/02/2017 77 0.731 -1.7 *Denotes significance at 95% confidence level, LSC for AP Spine = 0.022 g/cm2, LSC for Total Hip = 0.027 g/cm2 Clinical Information Provided by Patient: Have had a previous hip or vertebral fracture Has had a low trauma fracture Is being treated for osteoporosis Has used the following medications: Prolia (i.e. denosumab) Has the following medical conditions: Cancer Patient maximum height was 64 Menopause Age: 36 No regular weight bearing exercise Onset of menses at age 12 Number of children 3 Impression: The patient has low bone mass, based on the Right Femoral Neck T-score. The patient has risk factors, including: previous fracture. No significant bone loss was observed. Discussion: PATIENT UNDER TREATMENT WITH NO SIGNIFICANT BMD LOSS SINCE LAST EXAM. In an untreated patient, BMD typically declines with age. A lack of decl
== END 2023-08-13 08:55 | disposition home or self-care (01) ==
LOC: ANHIMG 08:56
PROVIDERS: Visit Provider Internal Medicine Hematology & Oncology
DX: M81.0 Age-related osteoporosis without current pathological fracture (principal); M85.89 Other specified disorders of bone density and structure, multiple sites; Z78.0 Asymptomatic menopausal state
CPT/HCPCS: 77080

== ENCOUNTER 2024-04-02 09:48 | Emergency (ER) | payer MEDICARE, SELFPAY ==
--- NOTE | ~2024-04-02 | CT_ITS ---
EXAMINATION: CT brain wo con DATE: 04/02/2024 10:25 INDICATION: Confusion. TECHNIQUE: Computed tomography (CT) of the head was performed without intravenous contrast. The mA wa s adjusted according to patient size. Iterative reconstruction technique was employed. The dose-lengt h product was 983.67 mGy-cm. COMPARISON: None FINDINGS: There are scattered areas of low attenuation in the cerebral white matter, which is within normal limits for the patient's age. There is a 3.9 x 3.8 x 3.7 cm calcified extra-axial mass at the planum sphenoidale, consistent with a meningioma. There is no acute ischemic infarct or intracranial hemorrhage. The ventricles are normal. The orbits are normal. The paranasal sinuses are clear. The ma stoid air cells are normal. IMPRESSION: 1. 3.9 cm planum sphenoidale meningioma. Reviewed, dictated and finalized at location A.
--- NOTE | ~2024-04-02 | XR_ITS ---
Portable chest x-ray Comparison: None Clinical History: Confusion Findings: Lungs are clear, without focal consolidation or pleural effusion. Cardiomediastinal silho uette is stable. Vertebroplasty at T12 present.. Impression: Clear lungs. Reviewed, dictated and finalized at location M. Impression: Clear lungs.
[2024-04-02 09:49] VITALS: BP 143/86; PULSE 81; RESP 16; O2SAT 98
[2024-04-02 09:55] VITALS: O2SAT 97
--- NOTE | 2024-04-02 09:55 | ECG_ITS ---
Test Date: 2024-04-02 10:01:00 Measurements Intervals [place] Rate: 76 P: 64 VT: 171 QRS: -5 QRSD: 98 T: 39 QT: 384 QTc: 433 Interpretive Statements SINUS RHYTHM POSSIBLE LEFT ATRIAL ENLARGEMENT [-0.1mV P-WAVE IN V1/V2] WITHIN NORMAL LIMITS No previous ECG available for comparison Electronically Signed On 04-02-2024 15:01:11 CDT by Brad Botello M.D.
--- NOTE | 2024-04-02 10:07 | ED.AMS ---
HPI - Altered Mental Status General Chief Complaint: Altered Mental Status Stated Complaint: confusion & agitation Source: EMS Mode of arrival: EMS History of Present Illness HPI narrative: 84 years old white female came from Memory Care Unit with increased confusion agitation and insomnia. Patient's daughter at the bedside is telling me that patient been having dementia for over 10 years which gradually got worse. Moved from 1 [facility] to [facility] care unit 10 days ago and unable to sleep for the last few days, the house physician does not ordered any medication to help the patient sleep, got agitated lately mainly today aggressive, yelling at everybody. Related Data Home Medications Medication Instructions Recorded Confirmed acetaminophen 500 mg tablet 1,000 mg PO Q6H PRN Pain 10/21/22 09/08/23 (Acetaminophen Extra Strength) anastrozole 1 mg tablet 1 mg PO DAILY 10/21/22 09/08/23 atorvastatin 10 mg tablet 20 mg PO DAILY 10/21/22 04/02/24 cholecalciferol (vitamin D3) 50 50 mcg PO BID 10/21/22 04/02/24 mcg (2,000 unit) capsule cyanocobalamin (vitamin B-12) 500 500 mcg PO DAILY 10/21/22 04/02/24 mcg tablet donepezil 10 mg tablet 10 mg PO HS 10/21/22 04/02/24 magnesium 200 mg tablet 400 mg PO DAILY 10/21/22 09/08/23 melatonin 3 mg tablet 3 mg PO HS PRN Insomnia 10/21/22 04/02/24 memantine 10 mg tablet 10 mg PO BID 10/21/22 04/02/24 omeprazole 20 mg capsule,delayed 20 mg PO HS 10/21/22 04/02/24 release sertraline 25 mg tablet 25 mg PO DAILY 10/21/22 04/02/24 cholecalciferol (vitamin D3) 50 04/02/24 mcg (2,000 unit) capsule (Vitamin D3) clotrimazole 1 % topical cream applic topical PRN Itching 04/02/24 (Antifungal (clotrimazole)) cyanocobalamin (vitamin B-12) 500 mcg 04/02/24 mcg tablet cyanocobalamin (vitamin B-12) 500 mcg 04/02/24 mcg tablet divalproex 125 mg tablet,delayed mg PO 04/02/24 release loratadine 10 mg tablet mg 04/02/24 magnesium oxide 400 mg (241.3 mg mg 04/02/24 magnesium) tablet sertraline 25 mg tablet mg 04/02/24 Allergies Allergy/AdvReac Type Severity Reaction Status Date / Time alendronate sodium Allergy Unknown Rash Verified 04/02/24 10:00 codeine Allergy Unknown Unknown Verified 04/02/24 10:00 tamoxifen Allergy Unknown Unknown Verified 04/02/24 10:00 Review of Systems Review of Systems: ROS unobtainable: Yes unobtainable due to medical condition and unobtainable due to mental status PMFSH Past Medical History Medical History Adult BMI 19-24 kg/sq m Family History Family History Mother Cerebrovascular accident Sibling Family history of diabetes mellitus in first degree relative Family history of malignant neoplasm of breast in first degree relative Family history of heart disease in male family member before age 55 Emphysema lung Father Family history of heart disease in male family member before age 55 Social History Social History Smoking status: Never smoker Second hand tobacco smoke exposure: Yes Alcohol intake: never Substance use: never Substance use type: does not use Living arrangements: alone Occupation/Education: retired 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 Musculoskeletal: Normal range of motion, nontender back Neurol
[2024-04-02 10:37] VITALS: BP 154/73; PULSE 73; RESP 16; O2SAT 99
[2024-04-02] MEDS: SODIUM CHLORIDE 0.9% IV 1,000 ML 999 ML IV CONT (10:50)
[2024-04-02 10:56] LABS: Basophils Percent Auto 0.4 % (0.2-1.2); Eosinophils Absolute Auto 0.1 K/mm3 (0-0.3); Eosinophils Percent Auto 1.2 % (0-4.4); Hematocrit 34.4 % (37.0-47.0); Hemoglobin 11.4 g/dL (12.0-15.0); Immature Granulocyte Absolute 0.01 K/mm3 (0.00-0.031); Immature Granulocyte Percent A 0.2 % (0-0.5); Lymphocytes Absolute Auto 1.48 K/mm3 (0.9-3.2); Lymphocytes Percent Auto 26.1 % (18.3-44.2); Mean Corpuscular HGB Conc 33.1 g/dl (32-36); Mean Corpuscular Hemoglobin 30.6 pg (26-34); Mean Corpuscular Volume 92.2 fl (80-100); Mean Platelet Volume 11.1 fl (7.4-10.4); Monocytes Absolute Auto 0.7 K/mm3 (0.1-0.6); Monocytes Percent Auto 11.5 % (2.6-8.5); Neutrophils Absolute Auto 3.4 K/mm3 (1.3-6.7); Neutrophils Percent Auto 60.6 % (45.5-73.1); Platelet Count Result 195 k/mm3 (150-375); Red Blood Count 3.73 M/mm3 (4.2-5.4); Red Cell Distribution Width 13.2 % (11.5-14.5); White Blood Count 5.7 K/mm3 (4.5-10.0)
[2024-04-02 11:00] VITALS: BP 166/69; PULSE 76; RESP 16; O2SAT 97
[2024-04-02 11:05] LABS: INR 1.1
[2024-04-02 11:33] LABS: Alanine Aminotransferase 11 U/L (6-35); Albumin Level 3.8 g/dL (3.5-5.1); Alkaline Phosphatase 75 U/L (38-126); Anion Gap 8 mmol/L (4-12); Aspartate Amino Transferase 18 U/L (14-36); Bilirubin,Total 0.4 mg/dL (0.2-1.3); Blood Urea Nitrogen 23 mg/dL (7-17); Calcium 9.6 mg/dL (8.4-10.2); Carbon Dioxide 29 mmol/L (22-30); Chloride 99 mmol/L (98-107); Estimated Glomerular Filt Rate 59; Glucose 86 mg/dL (65-110); Potassium 3.9 mmol/L (3.4-5.0); Sodium 136 mmol/L (137-145)
== END 2024-04-02 12:20 | disposition short-term general hospital (02) ==
PROVIDERS: Emergency Provider Emergency Medicine
DX: F32.A Depression, unspecified (principal); G47.00 Insomnia, unspecified; F03.90 Unspecified dementia, unspecified severity, without behavioral disturbance, psychotic disturbance, mood disturbance, and anxiety; Z79.899 Other long term (current) drug therapy; D32.0 Benign neoplasm of cerebral meninges; R94.31 Abnormal electrocardiogram [ECG] [EKG]
CPT/HCPCS: 36415; 70450; 71045; 80053; 85025; 85610; 85730; 93005; 96360; 99285; J7030

== ENCOUNTER 2024-06-04 22:45 | Emergency (ER) | payer MEDICARE, SELFPAY ==
--- NOTE | ~2024-06-04 | CT_ITS ---
EXAMINATION:CT diagnostic chest wo con DATE: 06/05/2024 02:41 INDICATION: Left anterior chest pain. Fall. TECHNIQUE: Computed tomography (CT) of the chest was performed without intravenous contrast. Automate d exposure control and iterative reconstruction technique were employed. The dose-length product (DLP ) was 175.05 mGy-cm. COMPARISON: CT abdomen and pelvis 06/05/2009 FINDINGS: There is a small left pneumothorax. There is mild atelectasis bilaterally. There are small pleural effusions. The heart size is normal. There are coronary artery calcifications. There is a tra ce pericardial effusion. There is a large sliding hiatal hernia. There is a 6.7 cm cyst in left kidne y. There are fractures of left fifth, sixth, and seventh ribs. There is gas in left lateral chest wal l. There is kyphosis and mild spondylosis of thoracic spine. There is a hemangioma in T3 vertebral remberto dy. There is a chronic compression fracture of T4. There is a chronic burst fracture of T12 with thomas ges of vertebroplasty. IMPRESSION: 1. Acute fractures of left fifth-seventh ribs. 2. Small left pneumothorax. 3. Small bilateral pleural effusions. 4. Large sliding hiatal hernia. Reviewed, dictated and finalized at location A.
[2024-06-04 22:46] VITALS: BP 120/100; PULSE 70; RESP 16; TEMP 36.8
[2024-06-04 23:03] VITALS: PULSE 73; RESP 18; O2SAT 98
[2024-06-04 23:15] VITALS: PULSE 75; RESP 17; O2SAT 100
[2024-06-04 23:30] VITALS: PULSE 77; RESP 19; O2SAT 94
[2024-06-04 23:31] VITALS: BP 135/62; PULSE 76; RESP 18; O2SAT 95
[2024-06-04 23:45] VITALS: PULSE 80; RESP 23
[2024-06-05] VITALS (28 sets, daily range): BP systolic 109–134; BP diastolic 59–91; PULSE 64–86; RESP 13–28; O2SAT 93–100
[2024-06-05] MEDS: LIDOCAINE 5% PATCH 1 PATCH TRANSDERM (01:14)
[2024-06-05] MEDS: traMADol HCL (*CRX) 25 MG TABLET PO (01:14)
[2024-06-05] MEDS: ACETAMINOPHEN 500 MG TABLET 1000 MG PO (01:14)
--- NOTE | 2024-06-05 01:29 | PC.NURSE ---
Patients family states her legs look a little swollen, could we possibly see why? This RN informed PA of patients family concerns.
--- NOTE | 2024-06-05 01:37 | ED.FALL ---
HPI - Fall General Chief Complaint: Fall <MARKEL Mcguire Last Filed: 06/05/24 14:01> Stated Complaint: syncope and fall L chest pain/tenderness <MARKEL Mcguire Last Filed: 06/05/24 14:01> Time Seen by Provider: 06/04/24 23:47 <MARKEL Mcguire Last Filed: 06/05/24 14:01> Source: patient and family <MARKEL Mcguire Last Filed: 06/05/24 14:01> Mode of arrival: EMS <MARKEL Mcguire Last Filed: 06/05/24 14:01> Limitations: dementia <MARKEL Mcguire Last Filed: 06/05/24 14:01> History of Present Illness HPI Narrative: Patient is an 84-year-old female, with PMH of dementia, who presents the ED via EMS with report of a fall. Patient is a resident of [facility] in [place], [place]. patient had a witnessed fall tonight at the half-way which she lost her balance and fell into a metal arm of a bench. She hit the left side of her chest against this. Patient complains of pain to her left upper chest wall, worse with deep breathing. Denies SOB. Denied head injury or LOC. Denies any other areas of pain. Family would like patient tested for urinary tract infection, however they otherwise feel patient has been at her neurologic baseline. <MARKEL Mcguire Last Filed: 06/05/24 14:01> Related Data Home Medications: Home Medications Medication Instructions Recorded Confirmed acetaminophen 500 mg tablet 1,000 mg PO Q6H PRN Pain 10/21/22 09/08/23 (Acetaminophen Extra Strength) anastrozole 1 mg tablet 1 mg PO DAILY 10/21/22 09/08/23 atorvastatin 10 mg tablet 20 mg PO DAILY 10/21/22 04/02/24 cholecalciferol (vitamin D3) 50 50 mcg PO BID 10/21/22 04/02/24 mcg (2,000 unit) capsule cyanocobalamin (vitamin B-12) 500 500 mcg PO DAILY 10/21/22 04/02/24 mcg tablet donepezil 10 mg tablet 10 mg PO HS 10/21/22 04/02/24 magnesium 200 mg tablet 400 mg PO DAILY 10/21/22 09/08/23 melatonin 3 mg tablet 3 mg PO HS PRN Insomnia 10/21/22 04/02/24 memantine 10 mg tablet 10 mg PO BID 10/21/22 04/02/24 omeprazole 20 mg capsule,delayed 20 mg PO HS 10/21/22 04/02/24 release sertraline 25 mg tablet 25 mg PO DAILY 10/21/22 04/02/24 cholecalciferol (vitamin D3) 50 04/02/24 mcg (2,000 unit) capsule (Vitamin D3) clotrimazole 1 % topical cream applic topical PRN Itching 04/02/24 (Antifungal (clotrimazole)) cyanocobalamin (vitamin B-12) 500 mcg 04/02/24 mcg tablet cyanocobalamin (vitamin B-12) 500 mcg 04/02/24 mcg tablet divalproex 125 mg tablet,delayed mg PO 04/02/24 release loratadine 10 mg tablet mg 04/02/24 magnesium oxide 400 mg (241.3 mg mg 04/02/24 magnesium) tablet sertraline 25 mg tablet mg 04/02/24 <Cassie Galvan PA-C - Last Filed: 06/05/24 14:01> Allergies/Adverse Reactions: Allergies Allergy/AdvReac Type Severity Reaction Status Date / Time alendronate sodium Allergy Unknown Rash Verified 04/02/24 10:00 codeine Allergy Unknown Unknown Verified 04/02/24 10:00 tamoxifen Allergy Unknown Unknown Verified 04/02/24 10:00 <MARKEL Mcguire Last Filed: 06/05/24 14:01> Review of Systems Review of Systems: All systems reviewed & are unremarkable except as noted in HPI. <MARKEL Mcguire Last Filed: 06/05/24 14:01> All systems reviewed & are unremarkable except as noted in HPI and below <MARKEL Mcguire Last Filed: 06/05/24 14:01> [facility] Past Medical History Medical History: Medical History (Updated 06/05/24 @ 04:55 by Raheem Hui MD) Adult BMI 19-24 kg/sq m Dementia with behavioral disturbance <Cassie Galvan PA-C - Last Filed: 06/05/24 14:01> Family History Family History: Family History Mother Cerebrovascular accident Sibling Family history of diabetes mellitus in first degree relative Famil
--- NOTE | 2024-06-05 02:20 | PC.NURSE ---
Patient taken to CT via stretcher at this time.
--- NOTE | 2024-06-05 03:48 | PC.NURSE ---
Patient and family notified of need for urine sample, family at bedside states she is sleeping so can we let her sleep? PA notified and okay with waiting on sample.
--- NOTE | 2024-06-05 05:03 | PC.NURSE ---
Report called to ANDIE Ochoa at [facility] ER at [phone].
== END 2024-06-05 05:55 | disposition short-term general hospital (02) ==
PROVIDERS: Emergency Provider Physician Assistant
DX: J94.2 Hemothorax (principal); R07.89 Other chest pain; S22.42XA Multiple fractures of ribs, left side, initial encounter for closed fracture; W19.XXXA Unspecified fall, initial encounter
CPT/HCPCS: 71250; 99285; A9270

== ENCOUNTER 2024-06-26 15:48 | Emergency (ER) | payer MEDICARE, SELFPAY ==
[2024-06-26] VITALS (19 sets, daily range): BP systolic 109–141; BP diastolic 54–74; PULSE 77–98; RESP 13–25; TEMP 36.8; O2SAT 97–100
--- NOTE | ~2024-06-26 | CT_ITS ---
EXAMINATION: CT brain wo con DATE: 06/26/2024 17:06 INDICATION: Altered mental state TECHNIQUE: Computed tomography (CT) of the head was performed without intravenous contrast. The mA wa s adjusted according to patient size. Iterative reconstruction technique was employed. Exam dose: 68 1.00 mGy-cm total exam DLP. COMPARISON: 04/02/2024 CT head FINDINGS: 2.4 x 3.7 x 3.9 cm heavily calcified meningioma is again noted along the roof of the spheno id sinuses, situated between the frontal lobes. No surrounding edema. No other intracranial mass lesion is evident. No intracranial hemorrhage. No subdural or epidural hematoma. Prominent bilateral carotid siphon internal carotid artery calcifications. There is nonspecific dimin ished attenuation of the cerebral white matter, likely due to chronic small vessel ischemic changes. No cerebrovascular accident is detected. There is moderate cerebellar and cerebral volume loss. No orbital mass lesion. The paranasal sinuses and mastoid air cells are normally developed and aerated. IMPRESSION: Stable large left mid frontal meningioma; no acute intracranial finding Reviewed, dictated and finalized at [facility]. Reviewed, dictated and finalized at [facility]. IMPRESSION: Stable large left mid frontal meningioma; no acute intracranial fi nding
--- NOTE | ~2024-06-26 | XR_ITS ---
XR chest 1V portable DATE: 06/26/2024 16:37 INDICATION: Altered mental state TECHNIQUE: Portable AP chest on 07/04/2024 at 1634 hours COMPARISON: 06/05/2024 CT chest 04/02/2024 AP chest FINDINGS: Cardiomegaly. Aortic arch calcification. No hilar or mediastinal enlargement. Mild bibasilar atelectasis and small pleural effusions are suggested. No pulmonary vascular congestio n or pneumothorax. Osteopenia. Diffuse idiopathic skeletal hyperostosis of the thoracic spine. Status post vertebroplasty at T12. Osteopenia. IMPRESSION: Cardiomegaly Mild bibasilar atelectasis, left greater than right, small pleural effusions Reviewed, dictated and finalized at [facility].
--- NOTE | 2024-06-26 16:20 | ECG_ITS ---
Test Date: 2024-06-26 16:39:02 Measurements Intervals [place] Rate: 88 P: 57 MO: 161 QRS: 12 QRSD: 102 T: 180 QT: 443 QTc: 537 Interpretive Statements SINUS RHYTHM POSSIBLE LEFT ATRIAL ENLARGEMENT ST-T WAVE ABNORMALITY IN ANTEROLAT/HIGH LAT LEADS- CONSIDER ISCHEMIA BASELINE ARTIFACT- I, II, AVR, AVL, AVF, V1-V3 ABNORMAL ECG Compared to ECG 04/02/2024 10:01:00 ST-T WAVE ABNORMALITY NOW PRESENT Electronically Signed On 06-26-2024 17:16:22 CDT by Tom Culp D.O.
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
[2024-06-26 17:24] LABS: Basophils Percent Auto 0.3 % (0.2-1.2); Eosinophils Absolute Auto 0.2 K/mm3 (0-0.3); Eosinophils Percent Auto 3.1 % (0-4.4); Hematocrit 32.1 % (37.0-47.0); Hemoglobin 10.5 g/dL (12.0-15.0); Immature Granulocyte Absolute 0.04 K/mm3 (0.00-0.031); Immature Granulocyte Percent A 0.5 % (0-0.5); Lymphocytes Percent Auto 16.1 % (18.3-44.2); Mean Corpuscular HGB Conc 32.7 g/dl (32-36); Mean Corpuscular Hemoglobin 30.8 pg (26-34); Mean Corpuscular Volume 94.1 fl (80-100); Mean Platelet Volume 10.7 fl (7.4-10.4); Monocytes Absolute Auto 0.9 K/mm3 (0.1-0.6); Monocytes Percent Auto 12.3 % (2.6-8.5); Neutrophils Absolute Auto 5.1 K/mm3 (1.3-6.7); Neutrophils Percent Auto 67.7 % (45.5-73.1); Platelet Count Result 303 k/mm3 (150-375); Red Blood Count 3.41 M/mm3 (4.2-5.4); White Blood Count 7.5 K/mm3 (4.5-10.0)
[2024-06-26 17:27] LABS: Add Urine Microscopic? YES; Appearance Urine Clear (Clear); Bacteria Urine None Seen /hpf; Bilirubin Urine Negative (Negative); Blood Urine 1+ (Negative); Color Urine Dark Yellow (Yellow); Glucose Urine UA Negative (Negative); Ketones Urine 1+ mg/dL (Negative); Leukocyte Esterase Ur Negative LEU/UL (Negative); Nitrate Urine Negative (Negative); Non Pathogenic Casts 0-2; Protein Urine 1+ mg/dL (Negative); Specific Grav Ur 1.023 (1.001-1.035); Squamous Epithelial Cell Urine None Seen /hpf (Few); Urobilinogen Urine 0.2 mg/dL (<2.0); WBC Urine 0-5 /hpf (0-3)
[2024-06-26 17:31] LABS: INR 1.2; Prothrombin Time 15.1 Seconds (11.1-14.7)
[2024-06-26 17:33] LABS: Alanine Aminotransferase 28 U/L (6-35); Albumin Level 3.5 g/dL (3.5-5.1); Alkaline Phosphatase 104 U/L (38-126); Anion Gap 11 mmol/L (4-12); Aspartate Amino Transferase 27 U/L (14-36); Bilirubin,Total 0.6 mg/dL (0.2-1.3); Blood Urea Nitrogen 27 mg/dL (7-17); Calcium 10.1 mg/dL (8.4-10.2); Carbon Dioxide 29 mmol/L (22-30); Chloride 94 mmol/L (98-107); Creatine Kinase 81 U/L (30-135); Estimated CRCL calculation 42 ml/min; Estimated Glomerular Filt Rate > 60; Glucose 85 mg/dL (65-110); Potassium 3.4 mmol/L (3.4-5.0); Sodium 134 mmol/L (137-145)
[2024-06-26 17:38] LABS: Amphetamine Screen Urine Negative (Negative); Barbiturate Screen Urine Negative (Negative); Benzodiazepines Screen Urine Negative (Negative); Cannabinoid Screen Urine Negative (Negative); Cocaine Screen Urine Negative (Negative); Methadone Screen Urine Negative (Negative); Opiate Screen Urine Negative (Negative); Phencyclidine Screen Urine Negative (Negative)
[2024-06-26 17:44] LABS: Troponin I 0.034 ng/mL (0.000-0.034)
--- NOTE | 2024-06-26 18:18 | ECG_ITS ---
Test Date: 2024-06-26 18:31:44 Measurements Intervals [place] Rate: 88 P: 63 CT: 150 QRS: 19 QRSD: 97 T: 193 QT: 405 QTc: 492 Interpretive Statements SINUS RHYTHM LEFT ATRIAL ENLARGEMENT ST-T WAVE ABNORMALITY IN DIFFUSE LEADS- CONSIDER ISCHEMIA BASELINE ARTIFACT- I, II, III, AVR, AVL, V2-V4 ABNORMAL ECG Compared to ECG 06/26/2024 16:39:02 No significant changes Electronically Signed On 06-26-2024 19:57:11 CDT by Tom Culp D.O.
[2024-06-26 19:00] LABS: Troponin I 0.034 ng/mL (0.000-0.034)
--- NOTE | 2024-06-26 19:31 | PC.NURSE ---
this rn assumed care of patient. this rn took patient report from ANDIE Gibbs.
--- NOTE | 2024-06-26 21:48 | PC.NURSE ---
pt began to be combative while trying to assess vital signs. pt refused vital signs.
--- NOTE | 2024-06-27 01:05 | PC.NURSE ---
pt refused exit vitals. pt began to scratch at staff when attempting to get exit vitals.
== END 2024-06-27 01:00 ==
PROVIDERS: Emergency Provider Physician Assistant
DX: R94.31 Abnormal electrocardiogram [ECG] [EKG] (principal); F03.918 Unspecified dementia, unspecified severity, with other behavioral disturbance; I10 Essential (primary) hypertension; E78.5 Hyperlipidemia, unspecified; Z79.899 Other long term (current) drug therapy
CPT/HCPCS: 36415; 70450; 71045; 80053; 80307; 81001; 82550; 84443; 84484; 85025; 85610; 85730; 93005; 99284

== ENCOUNTER 2024-06-27 16:37 | Inpatient (IN) | payer MEDICARE, SELFPAY ==
--- NOTE | ~2024-06-27 | CT_ITS ---
EXAMINATION: CT cervical spine wo con DATE: 06/27/2024 18:07 INDICATION: Fall TECHNIQUE: Computed tomography (CT) of the cervical spine was performed without intravenous contrast. Automated exposure control and iterative reconstruction technique were employed. Exam dose: 111.08 mGy-cm total exam DLP. COMPARISON: 06/27/2024 CT cervical spine FINDINGS: Normal alignment at the atlantoaxial joints. C1 and C2 are normally aligned and the odontoi d process is intact. There is prominent degenerative change at the articulation of the anterior arch of C1 and the odontoid process of C2. 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 Moderately severe degenerative disease at C5-6. Minimal anterolisthesis at C7-T1. Hemangioma of T3. There is degenerative change at the facet joints throughout the cervical spine. Uncovertebral joint s purring is noted particularly at C5-6 IMPRESSION: Moderate to moderately severe cervical spondylosis; no fracture or dislocation or locked facet Reviewed, dictated and finalized at [facility]. Reviewed, dictated and finalized at location A. CAB DRIVER
--- NOTE | ~2024-06-27 | CT_ITS ---
EXAMINATION: CT brain wo con DATE: 06/27/2024 18:07 INDICATION: Witnessed fall TECHNIQUE: Computed tomographic angiography (CTA) of the head was performed without and with 100 mL O mnipaque-350 intravenous contrast. Exam dose: 605.33 mGy-cm total exam DLP. Volume-rendered and ma ximum intensity projection 3D reconstructions of the intracranial arteries were created by the techno logist on a separate workstation. COMPARISON: 06/27/2024 CT brain 06/26/2024 CT brain 04/02/2024 CT brain FINDINGS: Necessary changes small vertex cephalohematoma since earlier today. No coup or contrecoup i ntracranial injury is identified. 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 There is central and cortical cerebral and cerebellar atrophy, including prominent temporal horns. No intracranial mass lesion or hemorrhage, midline shift or mass effect or subdural or epidural hemat lorraine is detected. No fracture or bone destruction of the cranial vault. Included mastoid air cells and paranasal sinuses are normally developed and aerated.. IMPRESSION: No skull fracture or acute intracranial finding or significant change since earlier todarlene alatorre Reviewed, dictated and finalized at [facility]. Reviewed, dictated and finalized at location A. OPEDIC CODER IMPRESSION: No skull fracture or acute intracranial finding or significant светлана nge since earlier today
--- NOTE | ~2024-06-27 | XR_ITS ---
XR chest 1V DATE: 06/27/2024 18:21 INDICATION: Fall TECHNIQUE: AP view COMPARISON: None FINDINGS: Multiple left rib fractures appear likely recent, including left fifth, sixth and seventh r ibs. Status post vertebroplasty at T12. Osteopenia. Cardiomegaly. Left lower lobe infiltrate or atelectasis is suggested. No pleural effusion or pneumothorax. Possible small pleural effusions. IMPRESSION: Fractures involving at least the left fifth and seventh ribs, likely recent Cardiomegaly Suspected left lower lobe infiltrate or atelectasis Status post vertebroplasty at T12 Reviewed, dictated and finalized at location A. ICIAN CODER IMPRESSION: Fractures involving at least the left fifth and seventh ribs, likel y recent Cardiomegaly Suspected left lower lobe infiltrate or atelectasis Status post vertebroplasty at T12
--- NOTE | ~2024-06-27 | XR_ITS ---
CHEST RADIOGRAPH CLINICAL HISTORY: tachypneic . COMPARISON: 06/27/2024. Reference is also made to a CT examination of the chest, performed 06/27/2024. TECHNIQUE: Single portable view of the chest. FINDINGS The cardiomediastinal silhouette is obscured. Increased interstitial markings are identified bilaterally, findings suggesting mild pulmonary vascul ar congestion. Increasing bilateral pleural effusions, right greater than left. Air bronchograms at the level of the right mid to lower lung field for which an early infiltrate is s uspected. Redemonstration of multiple rib fractures within the left hemithorax. The left lung is completely inflated. IMPRESSION: Large right and small left-sided pleural effusions (increased from prior). Mild pulmonary vascular congestion Possible early infiltrate within the right mid to lower lung field. Reviewed, dictated and finalized at location A. BUILDER AND REPAIRER
--- NOTE | ~2024-06-27 | CT_ITS ---
EXAMINATION: CT diagnostic chest wo con DATE: 06/27/2024 19:28 INDICATION: Left rib fractures TECHNIQUE: Computed tomography (CT) of the chest was performed without intravenous contrast. Automate d exposure control and iterative reconstruction technique were employed. Exam dose: 136.18 mGy-cm to saniya exam DLP. COMPARISON: 06/27/2024 chest 06/05/2024 CT chest: Acute fractures of the left 5th-7th ribs was reported on 06/05/2024. FINDINGS: This examination is very limited due to extensive patient motion, severely limiting the exa mination. Additionally, some of the left rib cage is outside the field of view. Probable healing anterior left fourth, fifth rib fractures and recent anterior left sixth rib fractur e. Healing anterior left seventh rib fracture. Posterolateral left seventh and eighth rib fractures. There are moderate bilateral pleural effusions with compressive atelectasis involving both lower lobe s. There is interval resolution of left pneumothorax since 06/05/2024. Cardiomegaly. Moderately large hiatal hernia. Status post cholecystectomy. Status post T12 vertebroplasty. IMPRESSION: Multiple left rib fractures; resolution of pneumothorax since 06/05/2024 Moderate bilateral pleural effusions, associated compressive bilateral lower lobe atelectasis Reviewed, dictated and finalized at [facility]. Reviewed, dictated and finalized at location A. GER DAIRY IMPRESSION: Multiple left rib fractures; resolution of pneumothorax since 05/25 Moderate bilateral pleural effusions, associated compressive bilateral lower lo be atelectasis
--- NOTE | ~2024-06-27 | XR_ITS ---
XR hip LT 2V w AP pelvis DATE: 06/27/2024 18:21 INDICATION: Fall TECHNIQUE: AP pelvis. AP and lateral views of left hip. COMPARISON: None FINDINGS: Mild left hip osteoarthritis. No fracture or dislocation, avascular necrosis or bone destru ction. Levoscoliosis and multilevel degenerative disc disease of the lumbar spine. Normal alignment at the pubic symphysis and sacroiliac joints. No pelvic fracture or bone destruction is detected. IMPRESSION: Mild left hip osteoarthritis No pelvic or left hip fracture or dislocation is detected Reviewed, dictated and finalized at location A. CARGO MOVER
[2024-06-27 16:44] VITALS: BP 112/60; PULSE 93; RESP 17; TEMP 36.4; O2SAT 96
--- NOTE | 2024-06-27 16:54 | ED.FALL ---
HPI - Fall General Chief Complaint: Fall Stated Complaint: hip pain after fall History of Present Illness HPI Narrative: 84-year-old female with history of dementia, hypertension, hyperlipidemia presents to the ED via EMS from [facility] for a ground level unwitnessed fall. Unknown if the patient hit her head. This is patient's 3rd visit in the past 24 hours. upon questioning she is denying any pain anywhere. Per nursing staff the patient had been holding her left hip after the fall. She is not anticoagulated. She is normally A&O times 0 to 1. Related Data Home Medications Medication Instructions Recorded Confirmed acetaminophen 500 mg tablet 1,000 mg PO Q8H 10/21/22 06/27/24 (Acetaminophen Extra Strength) atorvastatin 10 mg tablet 20 mg PO HS 10/21/22 06/27/24 omeprazole 20 mg capsule,delayed 20 mg PO DAILY 10/21/22 06/27/24 release sertraline 25 mg tablet 25 mg PO DAILY 10/21/22 06/27/24 cholecalciferol (vitamin D3) 50 2,000 unit PO DAILY 04/02/24 06/27/24 mcg (2,000 unit) capsule (Vitamin D3) divalproex 125 mg tablet,delayed 125 mg PO BID 04/02/24 06/27/24 release cyanocobalamin (vitamin B-12) 500 500 mcg PO DAILY 06/27/24 06/27/24 mcg tablet ipratropium 0.5 mg-albuterol 3 mg 3 ml inhalation BID PRN SOB 06/27/24 06/27/24 (2.5 mg base)/3 mL nebulization soln olanzapine 2.5 mg tablet 2.5 mg PO DAILY 06/27/24 06/27/24 polyethylene glycol 3350 17 gram 17 g PO DAILY PRN Constipation 06/27/24 06/27/24 oral powder packet (Miralax) sennosides 8.6 mg-docusate sodium 1 tab-cap PO DAILY 06/27/24 06/27/24 50 mg capsule (Senna Plus) trazodone 50 mg tablet 50 mg PO HS 06/27/24 06/27/24 Allergies Allergy/AdvReac Type Severity Reaction Status Date / Time alendronate sodium Allergy Unknown Rash Verified 06/27/24 22:16 codeine Allergy Unknown Unknown Verified 06/27/24 22:16 tamoxifen Allergy Unknown Unknown Verified 06/27/24 22:16 Review of Systems Review of Systems: All systems reviewed & are unremarkable except as noted in HPI and below PMFSH Past Medical History Medical History Adult BMI 19-24 kg/sq m Dementia with behavioral disturbance Family History Family History Mother Cerebrovascular accident Sibling Family history of diabetes mellitus in first degree relative Family history of malignant neoplasm of breast in first degree relative Family history of heart disease in male family member before age 55 Emphysema lung Father Family history of heart disease in male family member before age 55 Social History Social History Smoking status: Unknown if ever smoked Second hand tobacco smoke exposure: Yes Alcohol intake: never Substance use: never Substance use type: does not use Living arrangements: alone Occupation/Education: retired 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 HEAD: Normocephalic, atraumatic. EYES: PERRLA and EOMI. ENT: Nares clear, no rhinorrhea or epistaxis. Mucous membranes moist. NECK: no midline cervical spinous tenderness, step-offs or deformities BACK: no midline thoracolumbar spinous tenderness, step-offs or deformities CHEST: Clear to auscultation. No respiratory distress. Tenderness to left chest wall HEART: Regular rate and rhythm. No murmur heard. Normal peripheral pulses. ABDOMEN: Soft, nontender, nondistended, normal active bowel sounds. EXTREMITIES: tenderness to the left lateral anterior hip/ proximal femur with no obvious deformity. No rotation or shortening of the leg. Full passive range of motion. No edema or ecchymosis. DP pulse 2 +. Patient wiggling toes on command. No tenderness remainder of extremities. SKIN: Warm, dry, no rash. NEURO: No focal deficits. Alert and oriented x2 . Moving all extremities spontaneously Course Vital Signs Vital signs: Vital Signs Temperature 97.6 F 06/27/24 16:44 Pulse Rate 93 06/27/24 16:44 Respiratory Rate 17 11/03/24 16:44 Blood Pressure 112/60 06/27/24 16:44 Pulse Oximetry 96 06/27/24 16:44 Oxygen Delivery Room Air 06/27/24 16:44 Temperature 97.6 F 06/27/24 16:44 Pulse Rate 90 06/27/24 23:10 Respiratory Rate 17 06/27/24 23:10 Blood Pressure 126/59 L 06/27/24 23:10 Pulse Oximetry 99 06/27/24 23:10 Oxygen Delivery Room Air 06/27/24 16:44 MDM - Fall MDM Narrative Medical decision making narrative: 84-year-old female with history of dementia presents to the ED via EMS from [facility] for a ground level unwitnessed fall. Vitals are stable. Patient has no complaints of pain on my evaluation. Per nursing staff was complaining of left hip pain which is tender to palpation on exam. No obvious deformity. She is neurovascularly intact. Hip fracture shows mild left hip osteoarthritis with no pelvic or left hip fracture dislocation. Patient did have tenderness to chest wall and exam therefore chest x-ray obtained which shows concern for rib fractures. CT diagnostic chest obtained for further evaluation which shows multiple left rib fractures, resolution of pneumothorax since 06/05/2024 moderate bilateral pleural effusions associated compressive bilateral lower lobe atelectasis. Patient was transferred to [facility] on 06/05 after a fall with several rib fractures and a pneumothorax. I did discussed comparison of CT chest from today and 06/05 with the radiologist who states it is difficult to identify what fractures are new fractures are old. Lab work shows no leukocytosis or anemia. Chemistries with hypokalemia of 3.2, chloride of 9, bicarb of 34 and BUN of 20. Mag is also low at 1.4. Patient was given oral potassium repletion and IV magnesium repletion. She is given a L of fluids for suspected dehydration her chemistries. Discussed with hospitalist, Dr. Pierre, who agrees with [facility] placement given patient's recurrent falls. She is currently in rehab now. Lab Data 06/27/24 17:15 06/27/24 17:15 Labs: Lab Results 06/27/24 Range/Units 17:15 WBC 7.6 (4.5-10.0) K/mm3 RBC 4.01 L (4.2-5.4) M/mm3 Hgb 12.2 (12.0-15.0) g/dL Hct 37.3 (37.0-47.0) % MCV 93.0 (80-100) fl MCH 30.4 (26-34) pg MCHC 32.7 (32-36) g/dl RDW 15.2 H (11.5-14.5) % Plt Count 317 (150-375) k/mm3 MPV 10.4 (7.4-10.4) fl Immature Gran % (Auto) 0.3 (0-0.5) % Neut % (Auto) 68.7 (45.5-73.1) % Lymph % (Auto) 17.6 L (18.3-44.2) % [place] % (Auto) 10.7 H (2.6-8.5) % Eos % (Auto) 2.2 (0-4.4) % Baso % (Auto) 0.5 (0.2-1.2) % Lymph # (Auto) 1.34 (0.9-3.2) K/mm3 [place] # (Auto) 0.8 H (0.1-0.6) K/mm3 Eos # (Auto) 0.2 (0-0.3) K/mm3 Baso # (Auto) 0.0 (0.0-0.1) K/mm3 Abs Immat Gran (auto) 0.02 (0.00-0.031) K/mm3 Absolute Neuts (auto) 5.2 (1.3-6.7) K/mm3 Absolute Nucleated RBC 0.000 (0.0-0.012) K/mm3 Nucleated RBC % 0.0 (0.0-0.2) % Sodium 138 (137-145) mmol/L Potassium 3.2 L (3.4-5.0) mmol/L Chloride 95 L (98-107) mmol/L Carbon Dioxide 34 H (22-30) mmol/L Anion Gap 9 (4-12) mmol/L BUN 20 H (7-17) mg/dL Creatinine 0.70 (0.7-1.0) mg/dL Estim Creat Clear Calc 39 ml/min Estimated GFR > 60 (59 - ) Glucose 90 (65-110) mg/dL Calcium 10.3 H (8.4-10.2) mg/dL Magnesium 1.4 L (1.6-2.3) mg/dL Total Bilirubin 0.6 (0.2-1.3) mg/dL AST 26 (14-36) U/L ALT 25 (6-35) U/L Alkaline Phosphatase 109 (38-126) U/L Total Protein 7.0 (6.3-8.2) g/dL Albumin 3.6 (3.5-5.1) g/dL Discharge Plan Discharge Clinical Impression: Frequent falls Patient Disposition: Still a Patient Condition: Stable
[2024-06-27 17:21] LABS: Basophils Percent Auto 0.5 % (0.2-1.2); Eosinophils Absolute Auto 0.2 K/mm3 (0-0.3); Eosinophils Percent Auto 2.2 % (0-4.4); Hematocrit 37.3 % (37.0-47.0); Hemoglobin 12.2 g/dL (12.0-15.0); Immature Granulocyte Absolute 0.02 K/mm3 (0.00-0.031); Immature Granulocyte Percent A 0.3 % (0-0.5); Lymphocytes Absolute Auto 1.34 K/mm3 (0.9-3.2); Lymphocytes Percent Auto 17.6 % (18.3-44.2); Mean Corpuscular HGB Conc 32.7 g/dl (32-36); Mean Corpuscular Hemoglobin 30.4 pg (26-34); Mean Platelet Volume 10.4 fl (7.4-10.4); Monocytes Absolute Auto 0.8 K/mm3 (0.1-0.6); Monocytes Percent Auto 10.7 % (2.6-8.5); Neutrophils Absolute Auto 5.2 K/mm3 (1.3-6.7); Neutrophils Percent Auto 68.7 % (45.5-73.1); Platelet Count Result 317 k/mm3 (150-375); Red Blood Count 4.01 M/mm3 (4.2-5.4); Red Cell Distribution Width 15.2 % (11.5-14.5); White Blood Count 7.6 K/mm3 (4.5-10.0)
[2024-06-27 17:39] LABS: Alanine Aminotransferase 25 U/L (6-35); Albumin Level 3.6 g/dL (3.5-5.1); Alkaline Phosphatase 109 U/L (38-126); Anion Gap 9 mmol/L (4-12); Aspartate Amino Transferase 26 U/L (14-36); Bilirubin,Total 0.6 mg/dL (0.2-1.3); Blood Urea Nitrogen 20 mg/dL (7-17); Calcium 10.3 mg/dL (8.4-10.2); Carbon Dioxide 34 mmol/L (22-30); Chloride 95 mmol/L (98-107); Estimated CRCL calculation 39 ml/min; Estimated Glomerular Filt Rate > 60; Glucose 90 mg/dL (65-110); Potassium 3.2 mmol/L (3.4-5.0); Sodium 138 mmol/L (137-145)
[2024-06-27 19:30] VITALS: BP 123/57; PULSE 92; RESP 18; O2SAT 97
[2024-06-27] MEDS: POTASSIUM CHLORIDE 20 MEQ PACKET (FOR LIQUID) PO (21:24)
[2024-06-27 21:36] LABS: Magnesium 1.4 mg/dL (1.6-2.3)
[2024-06-27] MEDS: SODIUM CHLORIDE 0.9% IV 1,000 ML 100 ML IV CONT (21:58)
[2024-06-27] MEDS: MAGNESIUM SULF 1 GM/D5W 100 ML 1 GM/100 ML BAG IVPB (21:58)
[2024-06-27 22:04] VITALS: BP 101/57; PULSE 86; RESP 18; O2SAT 96
--- NOTE | 2024-06-27 22:18 | PC.NURSE ---
THIS RN CALLED [facility] TO GIVE NURSE TO NURSE REPORT AND DISCUSS PT DIAG AND POC, WILL BE ADMITTED, SPOKE W/ LACY WHO IS AWARE. ALSO CALLED DAUGHTER GEORGE (POA) AND GAVE UPDATE AND PLAN OF ADMIT - VERBALIZED UNDERSTANDING AND TRANSFERRED TO [place] TO BEGIN THE ADMIT PROCESS/QUESTIONS ON BEHALF OF PT.
--- NOTE | 2024-06-27 22:37 | PC.NURSE ---
daughter called and stated that pt is supposed to be getting Prolia shot from Dr. Luque for osteoporosis but missed her last shot 2 months ago
[2024-06-27 23:10] VITALS: BP 126/59; PULSE 90; RESP 17; O2SAT 99
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
--- NOTE | 2024-06-27 23:54 | ADMGEN ---
This patient, Kirstin Reyez, was admitted to [facility] Surg Room 305-01. Patient/family oriented to hospital policies and general routines including ID bracelet, bed and alarms, visiting hours, pain management, procedures, bathroom and other care routines, personal items, smoking policy, room service/diet, and visiting hours. Information on how to activate the Rapid Response Team has been discussed. Patient/Family are encouraged to report perceived risks to care and to ask questions if they do not understand what they are told or what they should do.
[2024-06-28 06:00] VITALS: BP 145/65; PULSE 103; RESP 20; TEMP 37; O2SAT 94
[2024-06-28] MEDS: ACETAMINOPHEN 500 MG TABLET 1000 MG PO ×2 (06:41→20:24)
[2024-06-28 07:26] LABS: Anion Gap 9 mmol/L (4-12); Blood Urea Nitrogen 16 mg/dL (7-17); Calcium 9.5 mg/dL (8.4-10.2); Carbon Dioxide 32 mmol/L (22-30); Chloride 98 mmol/L (98-107); Estimated CRCL calculation 45 ml/min; Estimated Glomerular Filt Rate > 60; Glucose 81 mg/dL (65-110); Magnesium 1.5 mg/dL (1.6-2.3); Potassium 2.9 mmol/L (3.4-5.0); Sodium 139 mmol/L (137-145)
--- NOTE | 2024-06-28 07:42 | PM.IMPN ---
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 (3) Bilateral pleural effusion: Code(s): J90 - Pleural effusion, not elsewhere classified Status: Acute Assessment and Plan: chest CT shown multiple left rib fractures with resolution of pneumothorax, moderate bilateral pleural effusions Echo from 10/22/22 shown normal LV systolic function with an estimated EF of 65-70%, grade 1 diastolic function Will give 40mg Lasix IV now Time Spent With Patient Time with patient: 25 - 35 minutes Subjective Date/time seen: 06/28/24 07:42 Interval history: Interval history: This is an 84 year old female with history of dementia who presented to the hospital for evaluation of multiple falls. Patient was agitated, combative/violent with staff while in the ER requiring chemical restraint. 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 C spine CT shown moderate cervical spondylosis with anterior and posterior spinal fusion at C3-C4. Chest x-ray shown fracture of left 5th and 7th rib, suspected lower lobe infiltrate. Hip and pelvis x-ray was negative for fracture or dislocation.Chest CT shown multiple left rib fractures with resolution of pneumothorax since 06/05/24, moderate bilateral pleural effusions. Initial labs shown a normal WBC 7.5, Hgb 10.5, Na+ 134, Chloride 94, Mag 1.4, KCL 3.2. UA shown 1+ protein, 1+ ketones, 1+ urine blood , 3-5 urine RBC, otherwise negative. UDS was also negative. EKG shown sinus rhythm with a rate of 88, QTc 492. Patient received Zyprexa, magnesium, and potassium while in the ER. Subjective: Patient sleepy, minimally interactive.Labs and imaging reviewed Review of Systems Review of Systems: All systems reviewed & are unremarkable except as noted in HPI and below ROS unobtainable: Yes unobtainable due to mental status Constitutional: Constitutional: Reports as per HPI and Reports no additional constitutional complaints Eyes: Eyes: Reports as per HPI and Reports no additional eye complaints ENT: Reports system reviewed and no additional complaints, except as documented and Reports as per HPI Cardiovascular: Cardiovascular: Reports as per HPI and Reports no additional cardiovascular complaints Respiratory: Respiratory: Reports as per HPI and Reports no additional respiratory complaints Gastrointestinal: Gastrointestinal: Reports as per HPI and Reports no additional gastrointestinal complaints Genitourinary: Genitourinary: Reports no additional female genitourinary complaints and Reports as per HPI Musculoskeletal: Musculoskeletal: Reports no additional musculoskeletal complaints and Reports as per HPI Integumentary/Breasts: Skin/Breast: Reports system reviewed and no additional complaints, except as docu and Reports as per HPI Neurologic: Reports system reviewed and no additional complaints, except as documented and Reports as per HPI Psychiatric: Psychiatric: Reports no additional psychiatric complaints and Reports as per HPI Exam Narrative: General: In no acute distress Head: atraumatic, no encephalopathy Eyes: PERRLA, sclera clear ENT: moist mucous membranes, nasal passages clear Neck: supple, no JVD, no adenopathy, trachea midline Cardiac: Normal S1 and S2. No murmur, gallops or friction rubs, peripheral pulses intact. Respiratory: Lungs clear to auscultation, no adventitious lung sounds, currently on room air Gastrointestinal: soft, non-distended, non-tender, normoactive bowel sounds. : voiding without difficulty. Extremities: moves all extremities well, no edema Skin: clean, dry, intact. No wounds or lesions. Neuro: Sleepy, minimally interactive Objective Data Vital Signs Vital Signs: Vital Signs - 24 hr 06/27/24 16:44 06/27/24 19:30 06/27/24 22:04 Temperature 97.6 F Pulse Rate 93 92 86 Respiratory Rate 17 18 18 Blood Pressure 112/60 123/57 L 101/57 L Pulse Oximetry 96 97 96 Oxygen Delivery Room Air 06/27/24 23:10 06/28/24 06:00 Temperature 98.6 F Pulse Rate 90 103 H Respiratory Rate 17 20 Blood Pressure 126/59 L 145/65 H Pulse Oximetry 99 94 Oxygen Delivery Intake/Output Intake/Output: Intake & Output 06/26/24 06/27/24 06/27/24 06/28/24 00:59 00:59 23:59 23:59 Intake Total 0 Balance 0 Meds/Results Medications: Active Medications Generic Name Dose Route Start Last Admin Trade Name Freq PRN Reason Stop Dose Admin Acetaminophen 1,000 mg 06/28/24 06:00 06/28/24 06:41 Acetaminophen 500 Mg Tablet PO 1,000 mg Q8HR STACEY Administration Albuterol/Ipratropium 3 ml 06/28/24 04:21 Ipratropium 0.5 Mg/Albuterol Sulfate 2.5 Mg Ampul.Neb 3 Ml INHALATION Q6HRT PRN Shortness Of Breath Cyanocobalamin 500 mcg 06/28/24 09:00 Cyanocobalamin 500 Mcg Tablet PO DAILY STACEY Divalproex Sodium 125 mg 06/28/24 08:[address] 125 Mg Tabec PO BIDWM [facility] Sodium Chloride 1,000 mls @ 100 mls/hr 06/27/24 21:57 06/27/24 21:58 Normal Saline Iv IV CONT 06/28/24 07:56 100 mls/hr .Q10H STA Administration Lisinopril 10 mg 06/28/24 09:00 Lisinopril 10 Mg Tablet PO QAM [facility] Pantoprazole Sodium 40 mg 06/28/24 09:00 Pantoprazole 40 Mg Tablet PO QAM [facility] Polyethylene Glycol 17 gm 06/28/24 04:21 Polyethylene Glycol 3350 17 Gm Powd.Pack PO DAILY PRN Constipation Senna/Docusate Sodium 1 tab 06/28/24 09:00 Senna/Docusate Sodium Tablet PO DAILY [facility] Sertraline HCl 25 mg 06/28/24 09:00 Sertraline Hcl 25 Mg Tablet PO DAILY [facility] Trazodone HCl 50 mg 06/28/24 21:00 Trazodone Hcl 50 Mg Tablet PO HS [facility] Vitamin D 2,000 units 06/28/24 09:00 Cholecalciferol 1,000 Units Tablet PO DAILY [facility] Radiology Results: ITS Impressions Chest X-Ray 06/27/24 18:35 IMPRESSION: Fractures involving at least the left fifth and seventh ribs, likely recent Cardiomegaly Suspected left lower lobe infiltrate or atelectasis Status post vertebroplasty at T12 Hip/Pelvis X-Ray 06/27/24 18:39 IMPRESSION: Mild left hip osteoarthritis No pelvic or left hip fracture or dislocation is detected Head CT 06/27/24 18:54 IMPRESSION: No skull fracture or acute intracranial finding or significant change since earlier today Cervical Spine CT 06/27/24 18:59 IMPRESSION: Moderate to moderately severe cervical spondylosis; no fracture or dislocation or locked facet Chest CT 06/27/24 19:57 IMPRESSION: Multiple left rib fractures; resolution of pneumothorax since 06/05/2024 Moderate bilateral pleural effusions, associated compressive bilateral lower lobe atelectasis Labs Labs: Laboratory Results - last 24 hr 06/27/24 06/28/24 17:15 06:33 WBC 7.6 RBC 4.01 L Hgb 12.2 Hct 37.3 MCV 93.0 MCH 30.4 MCHC 32.7 RDW 15.2 H Plt Count 317 MPV 10.4 Immature Gran % (Auto) 0.3 Neut % (Auto) 68.7 Lymph % (Auto) 17.6 L [place] % (Auto) 10.7 H Eos % (Auto) 2.2 Baso % (Auto) 0.5 Lymph # (Auto) 1.34 [place]ata[place] # (Auto) 0.8 H Eos # (Auto) 0.2 Baso # (Auto) 0.0 Abs Immat Gran (auto) 0.02 Absolute Neuts (auto) 5.2 Absolute Nucleated RBC 0.000 Nucleated RBC % 0.0 Sodium 138 139 Potassium 3.2 L 2.9 L Chloride 95 L 98 Carbon Dioxide 34 H 32 H Anion Gap 9 9 BUN 20 H 16 Creatinine 0.70 0.60 L Estim Creat Clear Calc 39 45 Estimated GFR > 60 > 60 Glucose 90 81 Calcium 10.3 H 9.5 Magnesium 1.4 L 1.5 L Total Bilirubin 0.6 AST 26 ALT 25 Alkaline Phosphatase 109 Total Protein 7.0 Albumin 3.6 Quality VTE Prophylaxis VTE prophylaxis: mechanical ordered
[2024-06-28 08:00] VITALS: PULSE 87; RESP 16; O2SAT 100
[2024-06-28] MEDS: POTASSIUM CHLORIDE INJ 40 MEQ in SODIUM CHLORIDE 0.9% IV 500 ML 130 MEQ IVPB ×2 (08:20→18:12)
[2024-06-28] MEDS: MAGNESIUM SULFATE 3GM/D5W100ML 3 GM/100 ML BAG IVPB (08:20)
[2024-06-28] MEDS: FUROSEMIDE INJ 40 MG/4 ML VIAL IV PUSH (09:10)
[2024-06-28 11:34] VITALS: BMI 21.0
--- NOTE | 2024-06-28 13:21 | PM.EVENT ---
Event Note Event Note Event Note: Called by nursing about combative violent behavior upon waking up. Patient given chemical restraint of Zyprexa 5 mg IM right now x1 dose. She has not been able to take her oral home medication due to cooperation. Will continue to monitor.
[2024-06-28] MEDS: OLANZapine 5 MG, WATER, STERILE FOR INJECTION 2.1 ML IM (13:41)
[2024-06-28 14:00] VITALS: BP 115/57; PULSE 87; RESP 16; TEMP 36.9; O2SAT 100
[2024-06-28] MEDS: traZODone HCL 50 MG TABLET PO (20:24)
[2024-06-28 22:00] VITALS: BP 105/83; PULSE 99; RESP 14; TEMP 36.8; O2SAT 95
[2024-06-29 04:49] VITALS: BP 139/77; PULSE 88; RESP 14; TEMP 36.7; O2SAT 93
--- NOTE | 2024-06-29 09:03 | PCOTNOTE ---
Attempted OT evaluation. Patient refuses and shouts at therapist. Will follow.
--- NOTE | 2024-06-29 09:11 | P.PNIM_ITS ---
Progress Note: A&P Assessment and Plan (1) Bilateral pleural effusion: Code(s): J90 - Pleural effusion, not elsewhere classified Status: Acute (2) Dementia with behavioral disturbance: Code(s): F03.91 - Unspecified dementia, unspecified severity, with behavioral disturbance Status: Acute (3) Frequent falls: Code(s): R29.6 - Repeated falls Status: Acute (4) Altered mental status: Code(s): R41.82 - Altered mental status, unspecified Status: Acute Plan Dementia with behavioral disturbance: Code(s): F03.91 - Unspecified dementia, unspecified severity, with behavioral disturbance Status: Acute Assessment and Plan: Chemical restraint as needed due to combative behavior Continue Depakote, Zyprexa, Zoloft, and Trazodone Possible delirium, patient is agitated Possible due to dehydration and multiple comorbidities, Pending CBC and chemistry CT head shows no acute intracranial issues s/w LR 100ml/h Frequent falls: Code(s): R29.6 - Repeated falls Status: Acute Assessment and Plan: * PT and OT to eval and treat * Case coordination consulted * 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 * Bilateral pleural effusion: Code(s): J90 - Pleural effusion, not elsewhere classified Status: Acute Assessment and Plan: * chest CT shown multiple left rib fractures with resolution of pneumothorax, moderate bilateral pleural effusions * Echo from 10/22/22 shown normal LV systolic function with an estimated EF of 65-70%, grade 1 diastolic function on 40mg Lasix IV now repeat CXR today Discontinue IV Lasix Hypokalemia, hypomagnesemia Potassium 2.9, magnesium 1.5 Replete with potassium chloride 40 mEq once a day, magnesium sulfate 2 g IV once Follow-up BMP, correct electrolyte abnormality accordingly Consult PT OT care management coordinator for evaluation and assisting placement Subjective Date/time seen: 06/29/24 09:11 Interval history: I saw exam patient today, patient is alert, confused, restless, patient denies chest pain abdomen pain, but cannot provide reliable history. Patient is afebrile, blood pressure stable Exam Narrative: GENERAL: Pleasant, in no acute distress. Well-nourished. - EYES: EOMI. Anicteric. - HENT: Moist mucous membranes. - LUNGS: Clear to auscultation bilateral ly, no wheezing, rhonchi, or rales. - CARDIOVASCULAR: Regular rate and rhyth m. No murmur. No JVD. - ABDOMEN: Soft, non-tender and non-dist ended. No palpable masses. - EXTREMITIES: No edema. Peripheral puls es 2+. Non-tender. - NEUROLOGIC: No focal neurological defi cits. CN II-XII grossly intact. - PSYCHIATRIC: Awake, Alert and not orie nted x 3. Anxious mood and affect. - SKIN: No rashes or lesions. Warm. - LYMPH: No cervical lymphadenopathy. Objective Data Vital Signs Vital Signs: Vital Signs - 24 hr 06/28/24 10:39 06/28/24 14:00 06/28/24 22:00 Temperature 98.5 F 98.2 F Pulse Rate 87 99 Respiratory Rate 16 14 Blood Pressure 115/57 L 105/83 Pulse Oximetry 100 95 Oxygen Delivery Room Air 06/29/24 04:49 Temperature 98.0 F Pulse Rate 88 Respiratory Rate 14 Blood Pressure 139/77 Pulse Oximetry 93 Oxygen Delivery Intake/Output Intake/Output: Intake & Output 06/27/24 06/27/24 06/28/24 06/29/24 00:59 23:59 23:59 23:59 Intake Total 0 75 Balance 0 75 Meds/Results Medications: Active Medications Generic Name Dose Route Start Last Admin Trade Name Freq PRN Reason Stop Dose Admin Acetaminophen 1,000 mg 06/28/24 06:00 06/29/24 06:20 Acetaminophen 500 Mg Tablet PO Not Given Q8HR STACEY Albuterol/Ipratropium 3 ml 06/28/24 04:21 Ipratropium 0.5 Mg/Albuterol Sulfate 2.5 Mg Ampul.Neb 3 Ml INHALATION Q6HRT PRN Shortness Of Breath Cyanocobalamin 500 mcg 06/28/24 09:00 06/28/24 13:42 Cyanocobalamin 500 Mcg Tablet PO Not Given DAILY STACEY Divalproex Sodium 125 mg 06/28/24 08:00 06/28/24 17:[address] 125 Mg Tabec PO Not Given BIDWM STACEY Lisinopril 10 mg 06/28/24 09:00 06/28/24 13:42 Lisinopril 10 Mg Tablet PO Not Given QAM [facility] Pantoprazole Sodium 40 mg 06/28/24 09:00 06/28/24 13:42 Pantoprazole 40 Mg Tablet PO Not Given QAM [facility] Polyethylene Glycol 17 gm 06/28/24 04:21 Polyethylene Glycol 3350 17 Gm Powd.Pack PO DAILY PRN Constipation Senna/Docusate Sodium 1 tab 06/28/24 09:00 06/28/24 13:42 Senna/Docusate Sodium Tablet PO Not Given DAILY STACEY Sertraline HCl 25 mg 06/28/24 09:00 06/28/24 13:42 Sertraline Hcl 25 Mg Tablet PO Not Given DAILY STACEY Trazodone HCl 50 mg 06/28/24 21:00 06/28/24 20:24 Trazodone Hcl 50 Mg Tablet PO 50 mg HS [facility] Administration Vitamin D 2,000 units 06/28/24 09:00 06/28/24 13:42 Cholecalciferol 1,000 Units Tablet PO Not Given DAILY [facility] Radiology Results: ITS Impressions Chest X-Ray 06/27/24 18:35 IMPRESSION: Fractures involving at least the left fifth and seventh ribs, likely recent Cardiomegaly Suspected left lower lobe infiltrate or atelectasis Status post vertebroplasty at T12 Hip/Pelvis X-Ray 06/27/24 18:39 IMPRESSION: Mild left hip osteoarthritis No pelvic or left hip fracture or dislocation is detected Head CT 06/27/24 18:54 IMPRESSION: No skull fracture or acute intracranial finding or significant change since earlier today Cervical Spine CT 06/27/24 18:59 IMPRESSION: Moderate to moderately severe cervical spondylosis; no fracture or dislocation or locked facet Chest CT 06/27/24 19:57 IMPRESSION: Multiple left rib fractures; resolution of pneumothorax since 06/05/2024 Moderate bilateral pleural effusions, associated compressive bilateral lower lobe atelectasis
[2024-06-29] MEDS: POTASSIUM CHLORIDE 20 MEQ PACKET (FOR LIQUID) 40 MEQ PO (10:08)
[2024-06-29] MEDS: CHOLECALCIFEROL 1,000 UNITS TABLET 2000 UNITS PO (10:09)
[2024-06-29] MEDS: SERTRALINE HCL 25 MG TABLET PO (10:10)
[2024-06-29] MEDS: PANTOPRAZOLE 40 MG TABLET PO (10:10)
[2024-06-29] MEDS: CYANOCOBALAMIN 500 MCG TABLET PO (10:10)
[2024-06-29] MEDS: lisinopriL 10 MG TABLET PO (10:10)
[2024-06-29] MEDS: DIVALPROEX SODIUM DR 125 MG TABEC PO ×2 (10:10→17:03)
[2024-06-29] MEDS: SENNA/DOCUSATE SODIUM TABLET 1 TAB PO (10:10)
[2024-06-29] MEDS: KCL 20 MEQ/SW 100 ML 100 ML 50 MEQ IVPB (10:14)
--- NOTE | 2024-06-29 11:18 | PC.NURSE ---
1119 Returned call to Martine. Addressed all her questions and concerns. Told her to call back anytime if she wanted another update.
--- NOTE | 2024-06-29 12:50 | PC.NURSE ---
Patient in bed for assessment. She is combative, uncooperative, and unable to understand requests or respond appropriately to questions. Patient did take medications, crushed, in applesauce. IV K infusing but patients constant movement consistently ocludes canula. Patient has a sitter at bedside.
[2024-06-29 14:00] VITALS: BP 107/61; PULSE 88; RESP 16; TEMP 36.8; O2SAT 94
--- NOTE | 2024-06-29 16:00 | PC.NURSE ---
No IV access. aware.
[2024-06-29 16:43] LABS: Basophils Percent Auto 0.4 % (0.2-1.2); Eosinophils Absolute Auto 0.1 K/mm3 (0-0.3); Eosinophils Percent Auto 1.4 % (0-4.4); Hematocrit 31.2 % (37.0-47.0); Hemoglobin 10.2 g/dL (12.0-15.0); Immature Granulocyte Absolute 0.02 K/mm3 (0.00-0.031); Immature Granulocyte Percent A 0.3 % (0-0.5); Lymphocytes Percent Auto 17.3 % (18.3-44.2); Mean Corpuscular HGB Conc 32.7 g/dl (32-36); Mean Corpuscular Hemoglobin 30.8 pg (26-34); Mean Corpuscular Volume 94.3 fl (80-100); Mean Platelet Volume 10.5 fl (7.4-10.4); Monocytes Absolute Auto 0.9 K/mm3 (0.1-0.6); Monocytes Percent Auto 12.9 % (2.6-8.5); Neutrophils Absolute Auto 4.7 K/mm3 (1.3-6.7); Neutrophils Percent Auto 67.7 % (45.5-73.1); Platelet Count Result 267 k/mm3 (150-375); Red Blood Count 3.31 M/mm3 (4.2-5.4); Red Cell Distribution Width 15.5 % (11.5-14.5); White Blood Count 6.9 K/mm3 (4.5-10.0)
[2024-06-29 19:42] VITALS: BP 144/79; PULSE 105; RESP 20; TEMP 36.6; O2SAT 94
[2024-06-29] MEDS: ACETAMINOPHEN 500 MG TABLET 1000 MG PO (20:35)
[2024-06-29] MEDS: traZODone HCL 50 MG TABLET PO (20:35)
[2024-06-29] MEDS: LACTATED RINGERS 1,000 ML 100 ML IV CONT (20:36)
[2024-06-29 23:03] LABS: Anion Gap 7 mmol/L (4-12); Blood Urea Nitrogen 11 mg/dL (7-17); Calcium 9.8 mg/dL (8.4-10.2); Carbon Dioxide 29 mmol/L (22-30); Chloride 103 mmol/L (98-107); Estimated CRCL calculation 45 ml/min; Estimated Glomerular Filt Rate > 60; Glucose 85 mg/dL (65-110); Potassium 4.4 mmol/L (3.4-5.0); Sodium 139 mmol/L (137-145)
[2024-06-30 04:06] VITALS: BP 130/72; PULSE 112; RESP 20; TEMP 36.3; O2SAT 95
--- NOTE | 2024-06-30 08:18 | PCOTNOTE ---
Attempted to see for OT evaluation 0815. Patient sleeping, not opening eyes to stimuli, and responding NO when asked if she needed to use the restroom. Will continue to attempt.
[2024-06-30 08:20] VITALS: O2SAT 94
[2024-06-30] MEDS: POTASSIUM CHLORIDE 20 MEQ PACKET (FOR LIQUID) 40 MEQ PO (09:00)
--- NOTE | 2024-06-30 09:12 | P.PNIM_ITS ---
Progress Note: A&P Assessment and Plan (1) Bilateral pleural effusion: Code(s): J90 - Pleural effusion, not elsewhere classified Status: Acute (2) Dementia with behavioral disturbance: Code(s): F03.91 - Unspecified dementia, unspecified severity, with behavioral disturbance Status: Acute (3) Frequent falls: Code(s): R29.6 - Repeated falls Status: Acute (4) Altered mental status: Code(s): R41.82 - Altered mental status, unspecified Status: Acute Plan Dementia with behavioral disturbance: Code(s): F03.91 - Unspecified dementia, unspecified severity, with behavioral disturbance Status: Acute Assessment and Plan: Chemical restraint as needed due to combative behavior Continue Depakote, Zyprexa, Zoloft, and Trazodone Possible delirium, patient is agitated Possible due to dehydration and multiple comorbidities, Pending CBC and chemistry CT head shows no acute intracranial issues s/w LR 100ml/h Frequent falls: Code(s): R29.6 - Repeated falls Status: Acute Assessment and Plan: * PT and OT to eval and treat * Case coordination consulted * 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 * Bilateral pleural effusion: Code(s): J90 - Pleural effusion, not elsewhere classified Status: Acute Assessment and Plan: * chest CT shown multiple left rib fractures with resolution of pneumothorax, moderate bilateral pleural effusions * Echo from 10/22/22 shown normal LV systolic function with an estimated EF of 65-70%, grade 1 diastolic function on 40mg Lasix IV now repeat CXR today Discontinue IV Lasix Hypokalemia, hypomagnesemia Potassium 2.9, magnesium 1.5 Replete with potassium chloride 40 mEq once a day, magnesium sulfate 2 g IV once Follow-up BMP, correct electrolyte abnormality accordingly Consult PT OT career development associate for evaluation and assisting placement Time Spent With Patient Time with patient: Greater than 35 minutes Subjective Date/time seen: 06/30/24 09:12 Interval history: Patient is seen and examined, she is confused, resting patient denies chest pain abdomen pain, but cannot provide reliable history. Patient is afebrile, blood pressure stable. will add zyprexa daily Review of Systems Review of Systems: All systems reviewed & are unremarkable except as noted in HPI and below ROS unobtainable: Yes unobtainable due to mental status Constitutional: Constitutional: Reports as per HPI and Reports no additional constitutional complaints Eyes: Eyes: Reports as per HPI and Reports no additional eye complaints ENT: Reports system reviewed and no additional complaints, except as documented and Reports as per HPI Cardiovascular: Cardiovascular: Reports as per HPI and Reports no additional cardiovascular complaints Respiratory: Respiratory: Reports as per HPI and Reports no additional respiratory complaints Gastrointestinal: Gastrointestinal: Reports as per HPI and Reports no additional gastrointestinal complaints Genitourinary: Genitourinary: Reports no additional female genitourinary complaints and Reports as per HPI Musculoskeletal: Musculoskeletal: Reports no additional musculoskeletal complaints and Reports as per HPI Integumentary/Breasts: Skin/Breast: Reports system reviewed and no additional complaints, except as docu and Reports as per HPI Neurologic: Reports system reviewed and no additional complaints, except as documented and Reports as per HPI Psychiatric: Psychiatric: Reports no additional psychiatric complaints and Reports as per HPI Exam Narrative: GENERAL: Pleasant, in no acute distress. Well-nourished. - EYES: EOMI. Anicteric. - HENT: Moist mucous membranes. - LUNGS: Clear to auscultation bilateral ly, no wheezing, rhonchi, or rales. - CARDIOVASCULAR: Regular rate and rhyth m. No murmur. No JVD. - ABDOMEN: Soft, non-tender and non-dist ended. No palpable masses. - EXTREMITIES: No edema. Peripheral puls es 2+. Non-tender. - NEUROLOGIC: No focal neurological defi cits. CN II-XII grossly intact. - PSYCHIATRIC: Awake, Alert and not orie nted x 3. Anxious mood and affect. - SKIN: No rashes or lesions. Warm. - LYMPH: No cervical lymphadenopathy. Const: Other: No acute distress, well-developed well-nourished HENMT: Other: Mucous membranes are tacky, no oral pharyngeal erythema, patient has he multiple missing teeth remain year teeth are in fair to poor condition, head is normocephalic atraumatic Eyes: Other: Pupils are equal and reactive, no scleral icterus Neck: Other: Unable to assess as the patient was fighting and trying to bite staff Resp: Other: Clear to auscultation bilaterally, no increased work of breathing Cardio: Other: Regular rate, regular rhythm, 2+ bilateral radial pedal pulses GI: Other: Firm but exam limited as patient is sitting up in trying to bite staff, positive bowel sounds Skin: Other: Small scab to the right lateral ankle, old postoperative scar to the right lateral ankle, multiple areas of bruises in various stages of healing in the left hip, bilateral buttock and back as well as extremities, no petechiae Neuro: Other: Patient is alert oriented to self only, speech is clear, patient is yelling obscenities at staff members, patient moves all extremities equally and has 5/5 strength bilateral upper and lower extremities Extrem: Other: 5/5 strength bilateral upper and lower e xtremities, trace somewhat chronic appearing edema of the right ankle Psych: Other: Agitated, aggressive, uncooperative, disheveled Objective Data Vital Signs Vital Signs: Vital Signs - 24 hr 06/29/24 14:00 06/29/24 19:42 06/30/24 04:06 Temperature 98.2 F 97.9 F 97.4 F L Pulse Rate 88 105 H 112 H Respiratory Rate 16 20 20 Blood Pressure 107/61 144/79 H 130/72 Pulse Oximetry 94 94 95 Oxygen Delivery 06/30/24 08:20 Temperature Pulse Rate Respiratory Rate Blood Pressure Pulse Oximetry 94 Oxygen Delivery Room Air Intake/Output Intake/Output: Intake & Output 06/27/24 06/28/24 06/29/24 06/30/24 23:59 23:59 23:59 23:59 Intake Total 0 743 Balance 0 743 Meds/Results Medications: Active Medications Generic Name Dose Route Start Last Admin Trade Name Nedq PRN Reason Stop Dose Admin Acetaminophen 1,000 mg 06/28/24 06:00 06/30/24 05:56 Acetaminophen 500 Mg Tablet PO Not Given Q8HR STACEY Albuterol/Ipratropium 3 ml 06/28/24 04:21 Ipratropium 0.5 Mg/Albuterol Sulfate 2.5 Mg Ampul.Neb 3 Ml INHALATION Q6HRT PRN Shortness Of Breath Cyanocobalamin 500 mcg 06/28/24 09:00 06/29/24 10:10 Cyanocobalamin 500 Mcg Tablet PO 500 mcg DAILY STACEY Administration Divalproex Sodium 125 mg 06/28/24 08:00 06/29/24 17:[address] 125 Mg Tabec PO 125 mg BIDWM STACEY Administration Lactated Ringer's 1,000 mls @ 100 mls/hr 06/29/24 15:55 06/29/24 20:36 Lr - Lactated Ringers Iv IV CONT 100 mls/hr .Q10H STACEY Administration Lisinopril 10 mg 06/28/24 09:00 06/29/24 10:10 Lisinopril 10 Mg Tablet PO 10 mg QAM STACEY Administration Pantoprazole Sodium 40 mg 06/28/24 09:00 06/29/24 10:10 Pantoprazole 40 Mg Tablet PO 40 mg QAM STACEY Administration Polyethylene Glycol 17 gm 06/28/24 04:21 Polyethylene Glycol 3350 17 Gm Powd.Pack PO DAILY PRN Constipation Potassium Chloride 40 meq 06/30/24 09:00 Potassium Chloride 20 Meq Packet (For Liquid) PO DAILY STACEY Senna/Docusate Sodium 1 tab 06/28/24 09:00 06/29/24 10:10 Senna/Docusate Sodium Tablet PO 1 tab DAILY STACEY Administration Sertraline HCl 25 mg 06/28/24 09:00 06/29/24 10:10 Sertraline Hcl 25 Mg Tablet PO 25 mg DAILY STACEY Administration Trazodone HCl 50 mg 06/28/24 21:00 06/29/24 20:35 Trazodone Hcl 50 Mg Tablet PO 50 mg HS STACEY Administration Vitamin D 2,000 units 06/28/24 09:00 06/29/24 10:09 Cholecalciferol 1,000 Units Tablet PO 2,000 units DAILY STACEY Administration Radiology Results: ITS Impressions Chest X-Ray 06/27/24 18:35 IMPRESSION: Fractures involving at least the left fifth and seventh ribs, likely recent Cardiomegaly Suspected left lower lobe infiltrate or atelectasis Status post vertebroplasty at T12 Hip/Pelvis X-Ray 06/27/24 18:39 IMPRESSION: Mild left hip osteoarthritis No pelvic or left hip fracture or dislocation is detected Head CT 06/27/24 18:54 IMPRESSION: No skull fracture or acute intracranial finding or significant change since earlier today Cervical Spine CT 06/27/24 18:59 IMPRESSION: Moderate to moderately severe cervical spondylosis; no fracture or dislocation or locked facet Chest CT 06/27/24 19:57 IMPRESSION: Multiple left rib fractures; resolution of pneumothorax since 06/05/2024 Moderate bilateral pleural effusions, associated compressive bilateral lower lobe atelectasis Labs Labs: Laboratory Results - last 24 hr 06/29/24 06/30/24 16:25 05:46 WBC 6.9 RBC 3.31 L Hgb 10.2 L Hct 31.2 L MCV 94.3 MCH 30.8 MCHC 32.7 RDW 15.5 H Plt Count 267 MPV 10.5 H Immature Gran % (Auto) 0.3 Neut % (Auto) 67.7 Lymph % (Auto) 17.3 L Burnett % (Auto) 12.9 H Eos % (Auto) 1.4 Baso % (Auto) 0.4 Lymph # (Auto) 1.20 Burnett # (Auto) 0.9 H Eos # (Auto) 0.1 Baso # (Auto) 0.0 Abs Immat Gran (auto) 0.02 Absolute Neuts (auto) 4.7 Absolute Nucleated RBC 0.000 Nucleated RBC % 0.0 Sodium 139 Potassium 4.4 4.0 Chloride 103 Carbon Dioxide 29 Anion Gap 7 BUN 11 D Creatinine 0.60 L Estim Creat Clear Calc 45 Estimated GFR > 60 Glucose 85 Calcium 9.8 Quality VTE Prophylaxis VTE prophylaxis: mechanical ordered
[2024-06-30] MEDS: OLANZAPINE IM (12:26)
[2024-06-30] MEDS: WATER IM (12:26)
[2024-06-30] MEDS: STERILE FOR IM (12:26)
[2024-06-30 14:00] VITALS: BP 166/72; PULSE 99; RESP 22; TEMP 36.6; O2SAT 96
[2024-06-30 14:16] LABS: Basophils Percent Auto 0.7 % (0.2-1.2); Eosinophils Absolute Auto 0.2 K/mm3 (0-0.3); Eosinophils Percent Auto 2.8 % (0-4.4); Hematocrit 32.3 % (37.0-47.0); Hemoglobin 10.4 g/dL (12.0-15.0); Immature Granulocyte Absolute 0.02 K/mm3 (0.00-0.031); Immature Granulocyte Percent A 0.4 % (0-0.5); Lymphocytes Absolute Auto 0.96 K/mm3 (0.9-3.2); Lymphocytes Percent Auto 17.9 % (18.3-44.2); Mean Corpuscular HGB Conc 32.2 g/dl (32-36); Mean Corpuscular Hemoglobin 30.6 pg (26-34); Mean Platelet Volume 10.4 fl (7.4-10.4); Monocytes Absolute Auto 0.7 K/mm3 (0.1-0.6); Monocytes Percent Auto 12.3 % (2.6-8.5); Neutrophils Absolute Auto 3.5 K/mm3 (1.3-6.7); Neutrophils Percent Auto 65.9 % (45.5-73.1); Platelet Count Result 273 k/mm3 (150-375); Red Cell Distribution Width 15.2 % (11.5-14.5); White Blood Count 5.4 K/mm3 (4.5-10.0)
[2024-06-30 14:21] LABS: Anion Gap 8 mmol/L (4-12); Blood Urea Nitrogen 9 mg/dL (7-17); Calcium 9.7 mg/dL (8.4-10.2); Carbon Dioxide 27 mmol/L (22-30); Chloride 103 mmol/L (98-107); Estimated CRCL calculation 45 ml/min; Estimated Glomerular Filt Rate > 60; Glucose 83 mg/dL (65-110); Potassium 3.7 mmol/L (3.4-5.0); Sodium 138 mmol/L (137-145)
[2024-06-30] MEDS: LACTATED RINGERS 1,000 ML 100 ML IV CONT (19:55)
[2024-06-30] MEDS: ACETAMINOPHEN 500 MG TABLET 1000 MG PO (21:11)
[2024-06-30] MEDS: traZODone HCL 50 MG TABLET PO (21:11)
[2024-06-30 22:00] VITALS: BP 158/73; PULSE 97; RESP 20; TEMP 36.2; O2SAT 96
[2024-07-01 06:00] VITALS: BP 142/72; PULSE 92; RESP 19; TEMP 36.4; O2SAT 94
[2024-07-01] MEDS: CYANOCOBALAMIN 500 MCG TABLET PO (08:44)
[2024-07-01] MEDS: CHOLECALCIFEROL 1,000 UNITS TABLET 2000 UNITS PO (08:44)
[2024-07-01] MEDS: POTASSIUM CHLORIDE 20 MEQ PACKET (FOR LIQUID) 40 MEQ PO (08:44)
[2024-07-01] MEDS: SERTRALINE HCL 25 MG TABLET PO (08:45)
[2024-07-01] MEDS: lisinopriL 10 MG TABLET PO (08:45)
[2024-07-01] MEDS: PANTOPRAZOLE 40 MG TABLET PO (08:45)
[2024-07-01] MEDS: OLANZapine 2.5 MG TABLET PO ×2 (08:45→17:03)
[2024-07-01] MEDS: DIVALPROEX SODIUM DR 125 MG TABEC PO ×2 (08:45→17:02)
[2024-07-01] MEDS: SENNA/DOCUSATE SODIUM TABLET 1 TAB PO (08:45)
[2024-07-01] MEDS: ACETAMINOPHEN 500 MG TABLET 1000 MG PO (08:46)
[2024-07-01] MEDS: OLANZapine 5 MG, WATER, STERILE FOR INJECTION 2.1 ML IM (09:46)
--- NOTE | 2024-07-01 10:10 | P.PNIM_ITS ---
Progress Note: A&P Assessment and Plan (1) Bilateral pleural effusion: Code(s): J90 - Pleural effusion, not elsewhere classified Status: Acute (2) Dementia with behavioral disturbance: Code(s): F03.91 - Unspecified dementia, unspecified severity, with behavioral disturbance Status: Acute (3) Frequent falls: Code(s): R29.6 - Repeated falls Status: Acute (4) Altered mental status: Code(s): R41.82 - Altered mental status, unspecified Status: Acute Plan Dementia with behavioral disturbance: Code(s): F03.91 - Unspecified dementia, unspecified severity, with behavioral disturbance Status: Acute Assessment and Plan: Chemical restraint as needed due to combative behavior Depakote, Zyprexa, Zoloft, and Trazodone Possible delirium, patient is agitated Possible due to dehydration and multiple comorbidities, CT head shows no acute intracranial issue s/w LR 100ml/h 07/01- neurology consulted- appreciate recommendations - holding above meds for now ativan prn - will order ua to rule out uti - last bm was couple of days ago- so constipation unlikely Frequent falls: Code(s): R29.6 - Repeated falls Status: Acute Assessment and Plan: * PT and OT to eval and treat * Case coordination consulted * 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 Bilateral pleural effusion: Code(s): J90 - Pleural effusion, not elsewhere classified Status: Acute Assessment and Plan: * chest CT shown multiple left rib fractures with resolution of pneumothorax, moderate bilateral pleural effusions * Echo from 10/22/22 shown normal LV systolic function with an estimated EF of 65-70%, grade 1 diastolic function on 40mg Lasix IV now repeat CXR today Discontinued IV Lasix Hypokalemia, hypomagnesemia Potassium 2.9, magnesium 1.5 Replete with potassium chloride 40 mEq once a day, magnesium sulfate 2 g IV once Follow-up BMP, correct electrolyte abnormality accordingly Consult PT OT healthcare translator for evaluation and assisting placement Time Spent With Patient Time with patient: Greater than 35 minutes Subjective Date/time seen: 07/01/24 10:10 Interval history: Patient is seen and examined. Reported that she was kicking this am and trying to bite staff. Zyprexa was added IM. neurology was consulted to help to optimize dementia medication -so we can find a safe place for pt to go to Review of Systems Review of Systems: All systems reviewed & are unremarkable except as noted in HPI and below ROS unobtainable: Yes unobtainable due to mental status Constitutional: Constitutional: Reports as per HPI and Reports no additional constitutional complaints Eyes: Eyes: Reports as per HPI and Reports no additional eye complaints ENT: Reports system reviewed and no additional complaints, except as documented and Reports as per HPI Cardiovascular: Cardiovascular: Reports as per HPI and Reports no additional cardiovascular complaints Respiratory: Respiratory: Reports as per HPI and Reports no additional respiratory complaints Gastrointestinal: Gastrointestinal: Reports as per HPI and Reports no additional gastrointestinal complaints Genitourinary: Genitourinary: Reports no additional female genitourinary complaints and Reports as per HPI Musculoskeletal: Musculoskeletal: Reports no additional musculoskeletal complaints and Reports as per HPI Integumentary/Breasts: Skin/Breast: Reports system reviewed and no additional complaints, except as docu and Reports as per HPI Neurologic: Reports system reviewed and no additional complaints, except as documented and Reports as per HPI Psychiatric: Psychiatric: Reports no additional psychiatric complaints and Reports as per HPI Exam Narrative: GENERAL: Pleasant, in no acute distress. Well-nourished. - EYES: EOMI. Anicteric. - HENT: Moist mucous membranes. - LUNGS: Clear to auscultation bilateral ly, no wheezing, rhonchi, or rales. - CARDIOVASCULAR: Regular rate and rhyth m. No murmur. No JVD. - ABDOMEN: Soft, non-tender and non-dist ended. No palpable masses. - EXTREMITIES: No edema. Peripheral puls es 2+. Non-tender. - NEUROLOGIC: No focal neurological defi cits. CN II-XII grossly intact. - PSYCHIATRIC: Awake, Alert and not orie nted x 3. Anxious mood and affect. - SKIN: No rashes or lesions. Warm. - LYMPH: No cervical lymphadenopathy. Const: Other: No acute distress, well-developed well-nourished HENMT: Other: Mucous membranes are tacky, no oral pharyngeal erythema, patient has he multiple missing teeth remain year teeth are in fair to poor condition, head is normocephalic atraumatic Eyes: Other: Pupils are equal and reactive, no scleral icterus Neck: Other: Unable to assess as the patient was fighting and trying to bite staff Resp: Other: Clear to auscultation bilaterally, no increased work of breathing Cardio: Other: Regular rate, regular rhythm, 2+ bilateral radial pedal pulses GI: Other: Firm but exam limited as patient is sitting up in trying to bite staff, positive bowel sounds Skin: Other: Small scab to the right lateral ankle, old postoperative scar to the right lateral ankle, multiple areas of bruises in various stages of healing in the left hip, bilateral buttock and back as well as extremities, no petechiae Neuro: Other: Patient is alert oriented to self only, speech is clear, patient is yelling obscenities at staff members, patient moves all extremities equally and has 5/5 strength bilateral upper and lower extremities Extrem: Other: 5/5 strength bilateral upper and lower e xtremities, trace somewhat chronic appearing edema of the right ankle Psych: Other: Agitated, aggressive, uncooperative, disheveled Objective Data Vital Signs Vital Signs: Vital Signs - 24 hr 06/30/24 14:00 06/30/24 20:00 06/30/24 22:00 Temperature 97.9 F 97.2 F L Pulse Rate 99 97 Respiratory Rate 22 H 20 Blood Pressure 166/72 H 158/73 H Pulse Oximetry 96 96 Oxygen Delivery Room Air 07/01/24 06:00 Temperature 97.6 F Pulse Rate 92 Respiratory Rate 19 Blood Pressure 142/72 H Pulse Oximetry 94 Oxygen Delivery Intake/Output Intake/Output: Intake & Output 06/28/24 06/29/24 06/30/24 07/01/24 23:59 23:59 23:59 23:59 Intake Total 0 743 1100 200 Balance 0 743 1100 200 Meds/Results Medications: Active Medications Generic Name Dose Route Start Last Admin Trade Name Freq PRN Reason Stop Dose Admin Acetaminophen 1,000 mg 06/28/24 06:00 07/01/24 08:46 Acetaminophen 500 Mg Tablet PO 1,000 mg Q8HR STACEY Administration Albuterol/Ipratropium 3 ml 06/28/24 04:21 Ipratropium 0.5 Mg/Albuterol Sulfate 2.5 Mg Ampul.Neb 3 Ml INHALATION Q6HRT PRN Shortness Of Breath Cyanocobalamin 500 mcg 06/28/24 09:00 07/01/24 08:44 Cyanocobalamin 500 Mcg Tablet PO 500 mcg DAILY STACEY Administration Divalproex Sodium 125 mg 06/28/24 08:00 07/01/24 08:[address] 125 Mg Tabec PO 125 mg BIDWM STACEY Administration Lactated Ringer's 1,000 mls @ 100 mls/hr 06/29/24 15:55 06/30/24 19:56 Lr - Lactated Ringers Iv IV CONT Not Given .Q10H STACEY Lisinopril 10 mg 06/28/24 09:00 07/01/24 08:45 Lisinopril 10 Mg Tablet PO 10 mg QAM STACEY Administration Olanzapine 2.5 mg 07/01/24 09:00 07/01/24 08:45 Olanzapine 2.5 Mg Tablet PO 2.5 mg QAM STACEY Administration Pantoprazole Sodium 40 mg 06/28/24 09:00 07/01/24 08:45 Pantoprazole 40 Mg Tablet PO 40 mg QAM STACEY Administration Polyethylene Glycol 17 gm 06/28/24 04:21 Polyethylene Glycol 3350 17 Gm Powd.Pack PO DAILY PRN Constipation Potassium Chloride 40 meq 06/30/24 09:00 07/01/24 08:44 Potassium Chloride 20 Meq Packet (For Liquid) PO 40 meq DAILY STACEY Administration Senna/Docusate Sodium 1 tab 06/28/24 09:00 07/01/24 08:45 Senna/Docusate Sodium Tablet PO 1 tab DAILY STACEY Administration Sertraline HCl 25 mg 06/28/24 09:00 07/01/24 08:45 Sertraline Hcl 25 Mg Tablet PO 25 mg DAILY STACEY Administration Trazodone HCl 50 mg 06/28/24 21:00 06/30/24 21:11 Trazodone Hcl 50 Mg Tablet PO 50 mg HS STACEY Administration Vitamin D 2,000 units 06/28/24 09:00 07/01/24 08:44 Cholecalciferol 1,000 Units Tablet PO 2,000 units DAILY STACEY Administration Radiology Results: ITS Impressions Chest X-Ray 06/27/24 18:35 IMPRESSION: Fractures involving at least the left fifth and seventh ribs, likely recent Cardiomegaly Suspected left lower lobe infiltrate or atelectasis Status post vertebroplasty at T12 Hip/Pelvis X-Ray 06/27/24 18:39 IMPRESSION: Mild left hip osteoarthritis No pelvic or left hip fracture or dislocation is detected Head CT 06/27/24 18:54 IMPRESSION: No skull fracture or acute intracranial finding or significant change since earlier today Cervical Spine CT 06/27/24 18:59 IMPRESSION: Moderate to moderately severe cervical spondylosis; no fracture or dislocation or locked facet Chest CT 06/27/24 19:57 IMPRESSION: Multiple left rib fractures; resolution of pneumothorax since 06/05/2024 Moderate bilateral pleural effusions, associated compressive bilateral lower lobe atelectasis Labs Labs: Laboratory Results - last 24 hr 06/30/24 14:04 WBC 5.4 RBC 3.40 L Hgb 10.4 L Hct 32.3 L MCV 95.0 MCH 30.6 MCHC 32.2 RDW 15.2 H Plt Count 273 MPV 10.4 Immature Gran % (Auto) 0.4 Neut % (Auto) 65.9 Lymph % (Auto) 17.9 L Allen % (Auto) 12.3 H Eos % (Auto) 2.8 Baso % (Auto) 0.7 Lymph # (Auto) 0.96 Allen # (Auto) 0.7 H Eos # (Auto) 0.2 Baso # (Auto) 0.0 Abs Immat Gran (auto) 0.02 Absolute Neuts (auto) 3.5 Absolute Nucleated RBC 0.000 Nucleated RBC % 0.0 Sodium 138 Potassium 3.7 Chloride 103 Carbon Dioxide 27 Anion Gap 8 BUN 9 Creatinine 0.60 L Estim Creat Clear Calc 45 Estimated GFR > 60 Glucose 83 Calcium 9.7 Quality VTE Prophylaxis VTE prophylaxis: mechanical ordered
--- NOTE | 2024-07-01 13:14 | P.CONNEU_ITS ---
Assessment and Plan Assessment and plan (1) Dementia with behavioral disturbance: Code(s): F03.91 - Unspecified dementia, unspecified severity, with behavioral disturbance Status: Acute (2) Benign neoplasm of meningioma (cerebral): Code(s): D32.0 - Benign neoplasm of cerebral meninges Status: Acute (3) History of fall: Code(s): Z91.81 - History of falling Status: Acute Plan At this time the goal would be to look for any underlying metabolic problem that can contribute to into her increased confusion such as an infectious process or a metabolic derangement of some kind. Control of behavior with the psychotropic medications or benzodiazepines would be necessary. Long-term both with the drugs such as Namenda or Aricept. antidepressants can sometimes lead to hypomanic behavior and hence we can hold off sertraline and trazodone for 3 days to see if this helps while we can add Ativan 1 mg twice a day. I shall be glad to follow her up. Consult date: 07/01/24 HPI: Kirstin Reyez is a 84 year old femaleHistory of dementia who has been agitated and to somewhat aggressive to staff. Patient has been falling. She is requiring caring staff to be by her side on a one-to-one basis. she was admitted to the hospital 3 2 24 acute due to falls. She was multiple factors the 12th and there was some concern regarding. She was to slow for evaluation and subsequent discharge to [facility] for. She came emergency for agitation heating other staff and residents. CT scan the chest has demonstrated resolution the pneumothorax. Multiple rib fractures were noted on left side. Moderate bilateral pleural effusion with associated compression lower lobe atelectasis was noted. When I saw the patient patient is keeping her mouth open constantly verbalizing which does not make any sense. She does not appear to have any insight into condition frequently playing with the ankles. She is unable to communicate His any meaningful way. According to admitting notes he tried to punch staff members. Review of Systems Review of Systems: ROS unobtainable: Yes unobtainable due to mental status PMFSH Past Medical History Medical History (Updated 07/01/24 @ 13:22 by Delilah Valenzuela MD) Adult BMI 19-24 kg/sq m Age-related osteoporosis without current pathological fracture Breast cancer Dementia with behavioral disturbance Hiatal hernia History of fall Mixed hyperlipidemia Surgical History Surgical History History of appendectomy History of partial mastectomy of right breast (~2013) History of total abdominal hysterectomy and bilateral salpingo-oophorectomy History of vertebroplasty T12 Hx of cholecystectomy Status post open reduction with internal fixation of fracture Right ankle fracture Family History Family History Mother Cerebrovascular accident Sibling Family history of diabetes mellitus in first degree relative Family history of malignant neoplasm of breast in first degree relative Family history of heart disease in male family member before age 55 Emphysema lung Father Family history of heart disease in male family member before age 55 Social History Social History Social History: Code status: DNR/DNI (per retirement report) Healthcare power of employment attorney: Martine Girard Smoking status: Unknown if ever smoked Second hand tobacco smoke exposure: Yes Alcohol intake: never Substance use: never Substance use type: does not use Living arrangements: alone Occupation/Education: retired 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, 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 Spiritual care concerns: No Meds Home Medications and Allergies Home Medications Medication Instructions Recorded Confirmed Type benazepril 10 mg tablet 10 mg PO DAILY #90 tabs 08/05/22 06/27/24 Rx acetaminophen 500 mg tablet 1,000 mg PO Q8H 10/21/22 06/27/24 History (Acetaminophen Extra Strength) atorvastatin 10 mg tablet 20 mg PO HS 10/21/22 06/27/24 History omeprazole 20 mg capsule,delayed 20 mg PO DAILY 10/21/22 06/27/24 History release sertraline 25 mg tablet 25 mg PO DAILY 10/21/22 06/27/24 History cholecalciferol (vitamin D3) 50 2,000 unit PO DAILY 04/02/24 06/27/24 History mcg (2,000 unit) capsule (Vitamin D3) divalproex 125 mg tablet,delayed 125 mg PO BID 04/02/24 06/27/24 History release cyanocobalamin (vitamin B-12) 500 500 mcg PO DAILY 06/27/24 06/27/24 History mcg tablet ipratropium 0.5 mg-albuterol 3 mg 3 ml inhalation BID PRN SOB 06/27/24 06/27/24 History (2.5 mg base)/3 mL nebulization soln olanzapine 2.5 mg tablet 2.5 mg PO DAILY 06/27/24 06/27/24 History polyethylene glycol 3350 17 gram 17 g PO DAILY PRN Constipation 06/27/24 06/27/24 History oral powder packet (Miralax) sennosides 8.6 mg-docusate sodium 1 tab-cap PO DAILY 06/27/24 06/27/24 History 50 mg capsule (Senna Plus) trazodone 50 mg tablet 50 mg PO HS 06/27/24 06/27/24 History Allergies Allergy/AdvReac Type Severity Reaction Status Date / Time alendronate sodium Allergy Unknown Rash Verified 06/27/24 22:16 codeine Allergy Unknown Unknown Verified 06/27/24 22:16 tamoxifen Allergy Unknown Unknown Verified 06/27/24 22:16 Vital Signs Vital Signs - 24 hr 06/30/24 14:00 06/30/24 20:00 06/30/24 22:00 Temperature 97.9 F 97.2 F L Pulse Rate 99 97 Respiratory Rate 22 H 20 Blood Pressure 166/72 H 158/73 H Pulse Oximetry 96 96 Oxygen Delivery Room Air 07/01/24 06:00 07/01/24 08:00 Temperature 97.6 F Pulse Rate 92 Respiratory Rate 19 Blood Pressure 142/72 H Pulse Oximetry 94 Oxygen Delivery Room Air Exam Narrative: The patient is awake and keeps her mouth open. She does seem to moving both upper and lower limbs. There is no asymmetry of the facial muscles. Extraocula r movements also appeared intact. No cogwheeling or involuntary movements were seen. He does not cooperate were formalized neurological examination. Results Labs 06/30/24 14:04 06/30/24 14:04 Labs: Short CBC 06/30/24 Range/Units 14:04 WBC 5.4 (4.5-10.0) K/mm3 Hgb 10.4 L (12.0-15.0) g/dL Hct 32.3 L (37.0-47.0) % Plt Count 273 (150-375) k/mm3 BMP 06/30/24 14:04 Sodium 138 Potassium 3.7 Chloride 103 Carbon Dioxide 27 BUN 9 Creatinine 0.60 L Glucose 83 Calcium 9.7
[2024-07-01 14:00] VITALS: BP 147/68; PULSE 86; RESP 20; TEMP 36.4; O2SAT 96
[2024-07-01 14:50] LABS: Basophils Absolute Auto 0.1 K/mm3 (0.0-0.1); Eosinophils Absolute Auto 0.2 K/mm3 (0-0.3); Hematocrit 32.1 % (37.0-47.0); Hemoglobin 10.5 g/dL (12.0-15.0); Immature Granulocyte Absolute 0.02 K/mm3 (0.00-0.031); Immature Granulocyte Percent A 0.3 % (0-0.5); Lymphocytes Absolute Auto 1.15 K/mm3 (0.9-3.2); Lymphocytes Percent Auto 19.1 % (18.3-44.2); Mean Corpuscular HGB Conc 32.7 g/dl (32-36); Mean Corpuscular Hemoglobin 30.9 pg (26-34); Mean Corpuscular Volume 94.4 fl (80-100); Mean Platelet Volume 10.3 fl (7.4-10.4); Monocytes Absolute Auto 0.7 K/mm3 (0.1-0.6); Monocytes Percent Auto 10.9 % (2.6-8.5); Neutrophils Absolute Auto 3.9 K/mm3 (1.3-6.7); Neutrophils Percent Auto 64.7 % (45.5-73.1); Platelet Count Result 273 k/mm3 (150-375); Red Cell Distribution Width 15.1 % (11.5-14.5)
[2024-07-01 14:57] LABS: Anion Gap 11 mmol/L (4-12); Blood Urea Nitrogen 7 mg/dL (7-17); Calcium 9.7 mg/dL (8.4-10.2); Carbon Dioxide 26 mmol/L (22-30); Chloride 101 mmol/L (98-107); Estimated CRCL calculation 53 ml/min; Estimated Glomerular Filt Rate > 60; Glucose 81 mg/dL (65-110); Potassium 3.4 mmol/L (3.4-5.0); Sodium 138 mmol/L (137-145)
[2024-07-01 16:12] LABS: Vitamin B12 > 1000.0 pg/mL (239-931)
[2024-07-01 16:51] LABS: Vitamin D 25 Hydroxy 51.6 ng/mL
[2024-07-01 20:19] VITALS: BP 174/83; PULSE 91; RESP 18; TEMP 36; O2SAT 95
[2024-07-01] MEDS: LORazepam (*CRX) 0.5 MG TABLET PO (20:35)
[2024-07-01 22:13] VITALS: BP 138/80
[2024-07-02] VITALS (7 sets, daily range): BP systolic 137–173; BP diastolic 86–97; PULSE 86–105; RESP 22–40; TEMP 36.2–36.6; O2SAT 93–96
[2024-07-02 07:11] LABS: Potassium 3.6 mmol/L (3.4-5.0)
[2024-07-02] MEDS: MEMANTINE 5 MG TABLET PO (09:34)
[2024-07-02] MEDS: SENNA/DOCUSATE SODIUM TABLET 1 TAB PO (09:34)
[2024-07-02] MEDS: OLANZapine 2.5 MG TABLET PO (09:34)
[2024-07-02] MEDS: PANTOPRAZOLE 40 MG TABLET PO (09:34)
[2024-07-02] MEDS: lisinopriL 10 MG TABLET PO (09:34)
[2024-07-02] MEDS: CYANOCOBALAMIN 500 MCG TABLET PO (09:34)
[2024-07-02] MEDS: POTASSIUM CHLORIDE 20 MEQ PACKET (FOR LIQUID) 40 MEQ PO (09:34)
[2024-07-02] MEDS: CHOLECALCIFEROL 1,000 UNITS TABLET 2000 UNITS PO (09:34)
[2024-07-02] MEDS: DIVALPROEX SODIUM DR 125 MG TABEC PO (09:34)
--- NOTE | 2024-07-02 10:04 | P.PNIM_ITS ---
Progress Note: A&P Assessment and Plan (1) Bilateral pleural effusion: Code(s): J90 - Pleural effusion, not elsewhere classified Status: Acute (2) Dementia with behavioral disturbance: Code(s): F03.91 - Unspecified dementia, unspecified severity, with behavioral disturbance Status: Acute (3) Frequent falls: Code(s): R29.6 - Repeated falls Status: Acute (4) Altered mental status: Code(s): R41.82 - Altered mental status, unspecified Status: Acute Plan Dementia with behavioral disturbance: Code(s): F03.91 - Unspecified dementia, unspecified severity, with behavioral disturbance Status: Acute Assessment and Plan: Chemical restraint as needed due to combative behavior Depakote, Zyprexa, Zoloft, and Trazodone Possible delirium, patient is agitated Possible due to dehydration and multiple comorbidities, CT head shows no acute intracranial issue s/w LR 100ml/h 07/01- neurology consulted- appreciate recommendations - holding above meds for now ativan prn - will order ua to rule out uti - last bm was couple of days ago- so constipation unlikely - working with care coordination for placement Frequent falls: Code(s): R29.6 - Repeated falls Status: Acute Assessment and Plan: * PT and OT to eval and treat * Case coordination consulted * 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 Bilateral pleural effusion: Code(s): J90 - Pleural effusion, not elsewhere classified Status: Acute Assessment and Plan: * chest CT shown multiple left rib fractures with resolution of pneumothorax, moderate bilateral pleural effusions * Echo from 10/22/22 shown normal LV systolic function with an estimated EF of 65-70%, grade 1 diastolic function on 40mg Lasix IV now repeat CXR today Discontinued IV Lasix Hypokalemia, hypomagnesemia Potassium 2.9, magnesium 1.5 Replete with potassium chloride 40 mEq once a day, magnesium sulfate 2 g IV once Follow-up BMP, correct electrolyte abnormality accordingly Consult PT OT care rep for evaluation and assisting placement Time Spent With Patient Time with patient: Greater than 35 minutes Subjective Date/time seen: 07/02/24 10:04 Interval history: Patient is seen and examined. Neurology saw her yesterday- added namenda- holding zoloft and trazadone. she had better night- was a little more relaxed - was able to sleep more Review of Systems Review of Systems: All systems reviewed & are unremarkable except as noted in HPI and below ROS unobtainable: Yes unobtainable due to mental status Constitutional: Constitutional: Reports as per HPI and Reports no additional constitutional complaints Eyes: Eyes: Reports as per HPI and Reports no additional eye complaints ENT: Reports system reviewed and no additional complaints, except as documented and Reports as per HPI Cardiovascular: Cardiovascular: Reports as per HPI and Reports no additional cardiovascular complaints Respiratory: Respiratory: Reports as per HPI and Reports no additional respiratory complaints Gastrointestinal: Gastrointestinal: Reports as per HPI and Reports no additional gastrointestinal complaints Genitourinary: Genitourinary: Reports no additional female genitourinary complaints and Reports as per HPI Musculoskeletal: Musculoskeletal: Reports no additional musculoskeletal complaints and Reports as per HPI Integumentary/Breasts: Skin/Breast: Reports system reviewed and no additional complaints, except as docu and Reports as per HPI Neurologic: Reports system reviewed and no additional complaints, except as documented and Reports as per HPI Psychiatric: Psychiatric: Reports no additional psychiatric complaints and Reports as per HPI Exam Narrative: GENERAL: Pleasant, in no acute distress. Well-nourished. - EYES: EOMI. Anicteric. - HENT: Moist mucous membranes. - LUNGS: Clear to auscultation bilateral ly, no wheezing, rhonchi, or rales. - CARDIOVASCULAR: Regular rate and rhyth m. No murmur. No JVD. - ABDOMEN: Soft, non-tender and non-dist ended. No palpable masses. - EXTREMITIES: No edema. Peripheral puls es 2+. Non-tender. - NEUROLOGIC: No focal neurological defi cits. CN II-XII grossly intact. - PSYCHIATRIC: Awake, Alert and not orie nted x 3. Anxious mood and affect. - SKIN: No rashes or lesions. Warm. - LYMPH: No cervical lymphadenopathy. Const: Other: No acute distress, well-developed well-nourished HENMT: Other: Mucous membranes are tacky, no oral pharyngeal erythema, patient has he multiple missing teeth remain year teeth are in fair to poor condition, head is normocephalic atraumatic Eyes: Other: Pupils are equal and reactive, no scleral icterus Neck: Other: Unable to assess as the patient was fighting and trying to bite staff Resp: Other: Clear to auscultation bilaterally, no increased work of breathing Cardio: Other: Regular rate, regular rhythm, 2+ bilateral radial pedal pulses GI: Other: Firm but exam limited as patient is sitting up in trying to bite staff, positive bowel sounds Skin: Other: Small scab to the right lateral ankle, old postoperative scar to the right lateral ankle, multiple areas of bruises in various stages of healing in the left hip, bilateral buttock and back as well as extremities, no petechiae Neuro: Other: Patient is alert oriented to self only, speech is clear, patient is yelling obscenities at staff members, patient moves all extremities equally and has 5/5 strength bilateral upper and lower extremities Extrem: Other: 5/5 strength bilateral upper and lower e xtremities, trace somewhat chronic appearing edema of the right ankle Psych: Other: Agitated, aggressive, uncooperative, disheveled Objective Data Vital Signs Vital Signs: Vital Signs - 24 hr 07/01/24 14:08 07/01/24 14:00 07/01/24 20:19 Temperature 97.5 F L 96.8 F L Pulse Rate 86 91 Respiratory Rate 20 18 Blood Pressure 147/68 H 174/83 H Pulse Oximetry 96 95 Oxygen Delivery Room Air 07/01/24 22:13 07/02/24 05:41 Temperature 97.1 F L Pulse Rate 86 Respiratory Rate 22 H Blood Pressure 138/80 145/95 H Pulse Oximetry 93 Oxygen Delivery Intake/Output Intake/Output: Intake & Output 06/29/24 06/30/24 07/01/24 07/02/24 23:59 23:59 23:59 23:59 Intake Total 743 1100 740 Output Total 200 Balance 743 1100 740 -200 Meds/Results Medications: Active Medications Generic Name Dose Route Start Last Admin Trade Name Freq PRN Reason Stop Dose Admin Acetaminophen 1,000 mg 06/28/24 06:00 07/02/24 05:30 Acetaminophen 500 Mg Tablet PO Not Given Q8HR STACEY Albuterol/Ipratropium 3 ml 06/28/24 04:21 Ipratropium 0.5 Mg/Albuterol Sulfate 2.5 Mg Ampul.Neb 3 Ml INHALATION Q6HRT PRN Shortness Of Breath Cyanocobalamin 500 mcg 06/28/24 09:00 07/02/24 09:34 Cyanocobalamin 500 Mcg Tablet PO 500 mcg DAILY STACEY Administration Divalproex Sodium 125 mg 06/28/24 08:00 07/02/24 09:[address] 125 Mg Tabec PO 125 mg BIDWM STACEY Administration Lactated Ringer's 1,000 mls @ 100 mls/hr 06/29/24 15:55 06/30/24 19:56 Lr - Lactated Ringers Iv IV CONT Not Given .Q10H STACEY Lisinopril 10 mg 06/28/24 09:00 07/02/24 09:34 Lisinopril 10 Mg Tablet PO 10 mg QAM STACEY Administration Lorazepam 0.5 mg 07/01/24 13:25 07/01/24 20:35 Lorazepam (*Crx) 0.5 Mg Tablet PO 0.5 mg TID PRN Administration Anxiety Memantine 5 mg 07/02/24 09:00 07/02/24 09:34 Memantine 5 Mg Tablet PO 5 mg QAM STACEY Administration Olanzapine 2.5 mg 07/01/24 17:00 07/02/24 09:34 Olanzapine 2.5 Mg Tablet PO 2.5 mg BID STACEY Administration Pantoprazole Sodium 40 mg 06/28/24 09:00 07/02/24 09:34 Pantoprazole 40 Mg Tablet PO 40 mg QAM STACEY Administration Polyethylene Glycol 17 gm 06/28/24 04:21 Polyethylene Glycol 3350 17 Gm Powd.Pack PO DAILY PRN Constipation Potassium Chloride 40 meq 06/30/24 09:00 07/02/24 09:34 Potassium Chloride 20 Meq Packet (For Liquid) PO 40 meq DAILY STACEY Administration Senna/Docusate Sodium 1 tab 06/28/24 09:00 07/02/24 09:34 Senna/Docusate Sodium Tablet PO 1 tab DAILY STACEY Administration Vitamin D 2,000 units 06/28/24 09:00 07/02/24 09:34 Cholecalciferol 1,000 Units Tablet PO 2,000 units DAILY STACEY Administration Radiology Results: ITS Impressions Chest X-Ray 06/27/24 18:35 IMPRESSION: Fractures involving at least the left fifth and seventh ribs, likely recent Cardiomegaly Suspected left lower lobe infiltrate or atelectasis Status post vertebroplasty at T12 Hip/Pelvis X-Ray 06/27/24 18:39 IMPRESSION: Mild left hip osteoarthritis No pelvic or left hip fracture or dislocation is detected Head CT 06/27/24 18:54 IMPRESSION: No skull fracture or acute intracranial finding or significant change since earlier today Cervical Spine CT 06/27/24 18:59 IMPRESSION: Moderate to moderately severe cervical spondylosis; no fracture or dislocation or locked facet Chest CT 06/27/24 19:57 IMPRESSION: Multiple left rib fractures; resolution of pneumothorax since 06/05/2024 Moderate bilateral pleural effusions, associated compressive bilateral lower lobe atelectasis Labs Labs: Laboratory Results - last 24 hr 07/01/24 07/02/24 14:40 05:59 WBC 6.0 RBC 3.40 L Hgb 10.5 L Hct 32.1 L MCV 94.4 MCH 30.9 MCHC 32.7 RDW 15.1 H Plt Count 273 MPV 10.3 Immature Gran % (Auto) 0.3 Neut % (Auto) 64.7 Lymph % (Auto) 19.1 [place] % (Auto) 10.9 H Eos % (Auto) 4.0 Baso % (Auto) 1.0 Lymph # (Auto) 1.15 [place] # (Auto) 0.7 H Eos # (Auto) 0.2 Baso # (Auto) 0.1 Abs Immat Gran (auto) 0.02 Absolute Neuts (auto) 3.9 Absolute Nucleated RBC 0.000 Nucleated RBC % 0.0 Sodium 138 Potassium 3.4 3.6 Chloride 101 Carbon Dioxide 26 Anion Gap 11 BUN 7 Creatinine 0.50 L Estim Creat Clear Calc 53 Estimated GFR > 60 Glucose 81 Calcium 9.7 Vitamin B12 > 1000.0 H Vitamin D 25-Hydroxy 51.6 Folate 7.0 Quality VTE Prophylaxis VTE prophylaxis: mechanical ordered
[2024-07-02 15:03] LABS: Homocysteine 10.5 umol/L (<10.4)
[2024-07-02] MEDS: ACETAMINOPHEN 500 MG TABLET 1000 MG PO (15:10)
--- NOTE | 2024-07-02 15:24 | PC.NURSE ---
This RN attempted to give pt PRN ativan and scheduled zyprexa however pt hitting, kicking, and spitting out meds.
[2024-07-02] MEDS: LACTATED RINGERS 1,000 ML 100 ML IV CONT (15:40)
[2024-07-02] MEDS: OLANZapine 5 MG, WATER, STERILE FOR INJECTION 2.1 ML IM (15:51)
--- NOTE | 2024-07-02 20:44 | PC.NURSE ---
Addendum entered by Josr Cook RN 07/02/24 21:45: CXR completed. DUO NEBS completed. New O2 requirement- 2L NC. Kat Moseley was up on the floor so I asked if she would mind coming to assess the patient. Kat assessed the patient and recommended getting an ABG to further assess respiratory status. ABG results came back and were sent to Kat. No critical results were found on ABG labs. Sitter/ PCT remains at bedside. Original Note: Sitter/ PCT alerted me that pt has been breathing very quickly as well as moaning occasionally. I went to assess pt and respiratory rate is elevated while pt is mouth breathing. HR is elevated in the 110-120s. PCT stated that this is a new change for pt. Dr Blackmon was called and informed about the pt's respiratory status, stat chest xray was recommended. Dr Blackmon agree with stat chest xray as well as a duoned breathing treatment. Orders were placed and both radiology and respiratory were called.
[2024-07-02] MEDS: IPRATROPIUM 0.5 MG/ALBUTEROL SULFATE 2.5 MG AMPUL.NEB 3 ML INHALATION (21:09)
[2024-07-02 21:23] LABS: Alveolar/Arterial O2 Gradient 47.4 mmHg; Base Excess ABG 1.1 mEq/l (+/-2.0); Carboxyhemoglobin 0.4 % THb (0-2.0); Fractional Inspired Oxygen 28 %; HCO3 ABG 25.9 mEq/l (22.0-26.0); Methemoglobin ABG 0.2 %THb (0-1.5); Oxygen Content ABG 15.5 %vol (16.0-22.0); Oxygen Saturation ABG 97.7 % (95.0-100.0); Oxyhemoglobin 96.8 % THb (90.0-100.0); PCO2 ABG 42.2 mmHg (35.0-45.0); PO2 ABG 102.4 mmHg (80.0-100.0); PO2 FiO2 Ratio Arterial Blood 3.66 %; Reduced Hemoglobin 2.6 %THb (0-5.0); Total Hemoglobin 11.3 g/dL (12.0-18.0); pH ABG 7.406 (7.350-7.450)
[2024-07-02 21:24] LABS: Modified Allen's Test Pass; Site Drawn LEFT RADIAL
[2024-07-02 21:25] LABS: Device NASAL CANNULA
[2024-07-03] MEDS: LACTATED RINGERS 1,000 ML 100 ML IV CONT ×3 (02:31→23:23)
[2024-07-03 05:13] VITALS: BP 139/80; PULSE 105; RESP 30; TEMP 36.4; O2SAT 98
[2024-07-03 05:55] LABS: Add Urine Microscopic? YES; Appearance Urine Cloudy (Clear); Bacteria Urine 4+ /hpf; Bilirubin Urine Negative (Negative); Blood Urine Negative (Negative); Color Urine Yellow (Yellow); Glucose Urine UA Negative (Negative); Ketones Urine 1+ mg/dL (Negative); Leukocyte Esterase Ur Trace LEU/UL (Negative); Need Manual Microscopic Reviewed; Nitrate Urine Negative (Negative); Protein Urine Trace mg/dL (Negative); Specific Grav Ur 1.011 (1.001-1.035); Squamous Epithelial Cell Urine Occasional /hpf (Few); WBC Urine 0-5 /hpf (0-3); pH Urine 5.5 (5.0-9.0)
[2024-07-03 08:05] VITALS: RESP 28; O2SAT 95
[2024-07-03 08:14] VITALS: O2SAT 96
--- NOTE | 2024-07-03 09:08 | P.PNIM_ITS ---
Progress Note: A&P Assessment and Plan (1) Bilateral pleural effusion: Code(s): J90 - Pleural effusion, not elsewhere classified Status: Acute (2) Dementia with behavioral disturbance: Code(s): F03.91 - Unspecified dementia, unspecified severity, with behavioral disturbance Status: Acute (3) Frequent falls: Code(s): R29.6 - Repeated falls Status: Acute (4) Altered mental status: Code(s): R41.82 - Altered mental status, unspecified Status: Acute Plan Dementia with behavioral disturbance: Code(s): F03.91 - Unspecified dementia, unspecified severity, with behavioral disturbance Status: Acute Assessment and Plan: Chemical restraint as needed due to combative behavior Depakote, Zyprexa, Zoloft, and Trazodone Possible delirium, patient is agitated Possible due to dehydration and multiple comorbidities, CT head shows no acute intracranial issue s/w LR 100ml/h 07/01- neurology consulted- appreciate recommendations - holding above meds for now ativan prn - will order ua to rule out uti - last bm was couple of days ago- so constipation unlikely - working with care coordination for placement 07/03- worse today, restless. could be exacerbated by pneumonia - will treat with IV antibiotics switch ativan to IV to avoid PO meds to prevent aspiration -called Martine Girard, , POA, discussed plan of care and goals. Pt would not want to proceed with Peg tube or any other tube for feeding- as she is DNR. Martine will discuss it with her brother but now, she is leaning toward hospice/comfort measures for pt. RN is updated as well. 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 Bilateral pleural effusion: Code(s): J90 - Pleural effusion, not elsewhere classified Status: Acute Assessment and Plan: * chest CT shown multiple left rib fractures with resolution of pneumothorax, moderate bilateral pleural effusions * Echo from 10/22/22 shown normal LV systolic function with an estimated EF of 65-70%, grade 1 diastolic function on 40mg Lasix IV now repeat CXR today Discontinued IV Lasix 07/03- increased rr, chest xray repeated- impressions: Large right and small left-sided pleural effusions (increased from prior). Mild pulmonary vascular congestion Possible early infiltrate within the right mid to lower lung field. - will add Cefepime IV Hypokalemia, hypomagnesemia Potassium 2.9, magnesium 1.5 Replete with potassium chloride 40 mEq once a day, magnesium sulfate 2 g IV once Follow-up BMP, correct electrolyte abnormality accordingly Consult PT OT health care law specialist for evaluation and assisting placement Time Spent With Patient Time with patient: Greater than 35 minutes Subjective Date/time seen: 07/03/24 09:08 Interval history: Patient is seen and examined. Increased resp rate this morning, not able to eat or take PO meds at all today. Chest xray done. iv antibiotics started. Discussed plan of care with POA- family is choosing to go with hospice. Review of Systems Review of Systems: All systems reviewed & are unremarkable except as noted in HPI and below ROS unobtainable: Yes unobtainable due to mental status Constitutional: Constitutional: Reports as per HPI and Reports no additional constitutional complaints Eyes: Eyes: Reports as per HPI and Reports no additional eye complaints ENT: Reports system reviewed and no additional complaints, except as docu mented and Reports as per HPI Cardiovascular: Cardiovascular: Reports as per HPI and Reports no additional cardiovascular complaints Respiratory: Respiratory: Reports as per HPI and Reports no additional respiratory complaints Gastrointestinal: Gastrointestinal: Reports as per HPI and Reports no additional gastrointestinal complaints Genitourinary: Genitourinary: Reports no additional female genitourinary complaints and Reports as per HPI Musculoskeletal: Musculoskeletal: Reports no additional musculoskeletal complaints and Reports as per HPI Integumentary/Breasts: Skin/Breast: Reports system reviewed and no additional complaints, except as docu and Reports as per HPI Neurologic: Reports system reviewed and no additional complaints, except as documented and Reports as per HPI Psychiatric: Psychiatric: Reports no additional psychiatric complaints and Reports as per HPI Exam Narrative: GENERAL: Pleasant, in no acute distress. Well-nourished. - EYES: EOMI. Anicteric. - HENT: Moist mucous membranes. - LUNGS: Clear to auscultation bilateral ly, no wheezing, rhonchi, or rales. - CARDIOVASCULAR: Regular rate and rhyth m. No murmur. No JVD. - ABDOMEN: Soft, non-tender and non-dist ended. No palpable masses. - EXTREMITIES: No edema. Peripheral puls es 2+. Non-tender. - NEUROLOGIC: No focal neurological defi cits. CN II-XII grossly intact. - PSYCHIATRIC: Awake, Alert and not orie nted x 3. Anxious mood and affect. - SKIN: No rashes or lesions. Warm. - LYMPH: No cervical lymphadenopathy. Const: Other: No acute distress, well-developed well-nourished HENMT: Other: Mucous membranes are tacky, no oral pharyngeal erythema, patient has he multiple missing teeth remain year teeth are in fair to poor condition, head is normo cephalic atraumatic Eyes: Other: Pupils are equal and reactive, no scleral icterus Neck: Other: Unable to assess as the patient was fighting and trying to bite staff Resp: Other: Clear to auscultation bilaterally, no increased work of breathing Cardio: Other: Regular rate, regular rhythm, 2+ bilateral radial pedal pulses GI: Other: Firm but exam limited as patient is sitting up in trying to bite staff, positive bowel sounds Skin: Other: Small scab to the right lateral ankle, old postoperative scar to the right lateral ankle, multiple areas of bruises in various stages of healing in the left hip, bilateral buttock and back as well as extremities, no petechiae Neuro: Other: Patient is alert oriented to self only, speech is clear, patient is yelling obscenities at staff members, patient moves all extremities equally and has 5/5 strength bilateral upper and lower extremities Extrem: Other: 5/5 strength bilateral upper and lower e xtremities, trace somewhat chronic appearing edema of the right ankle Psych: Other: Agitated, aggressive, uncooperative, disheveled Objective Data Vital Signs Vital Signs: Vital Signs - 24 hr 07/02/24 13:18 07/02/24 19:51 07/02/24 21:09 Temperature 98 F 97.3 F L Pulse Rate 97 100 95 Respiratory Rate 22 H 40 H 30 H Blood Pressure 137/97 H 173/86 H Pulse Oximetry 94 96 Oxygen Delivery Oxygen Flow Rate 07/02/24 21:15 07/02/24 20:00 07/02/24 23:00 Temperature Pulse Rate 105 H 95 Respiratory Rate 30 H 30 H 24 H Blood Pressure Pulse Oximetry 96 96 Oxygen Delivery Nasal Cannula Oxygen Flow Rate 2 07/03/24 05:13 07/03/24 08:05 07/03/24 08:14 Temperature 97.6 F Pulse Rate 105 H Respiratory Rate 30 H 28 H Blood Pressure 139/80 Pulse Oximetry 98 95 96 Oxygen Delivery Nasal Cannula Oxygen Flow Rate 2 Intake/Output Intake/Output: Intake & Output 06/30/24 07/01/24 07/02/24 07/03/24 23:59 23:59 23:59 23:59 Intake Total 1100 1740 30 1050 Output Total 200 450 Balance 1100 1740 -170 600 Meds/Results Medications: Active Medications Generic Name Dose Route Start Last Admin Trade Name Freq PRN Reason Stop Dose Admin Acetaminophen 1,000 mg 06/28/24 06:00 07/03/24 06:05 Acetaminophen 500 Mg Tablet PO Not Given Q8HR STACEY Albuterol/Ipratropium 3 ml 06/28/24 04:21 Ipratropium 0.5 Mg/Albuterol Sulfate 2.5 Mg Ampul.Neb 3 Ml INHALATION Q6HRT PRN Shortness Of Breath Cyanocobalamin 500 mcg 06/28/24 09:00 07/02/24 09:34 Cyanocobalamin 500 Mcg Tablet PO 500 mcg DAILY STACEY Administration Divalproex Sodium 125 mg 07/02/24 22:00 07/02/24 22:[address] 125 Mg Tabec PO Not Given BIDWM STACEY Lactated Ringer's 1,000 mls @ 100 mls/hr 06/29/24 15:55 07/03/24 02:31 Lr - Lactated Ringers Iv IV CONT 100 mls/hr .Q10H STACEY Administration Cefepime HCl 2 gm in 50 mls @ 100 mls/hr 07/03/24 09:00 Maxipime 2 Gm/Ns 50 Ml IVPB Q12HR STACEY Lisinopril 10 mg 06/28/24 09:00 07/02/24 09:34 Lisinopril 10 Mg Tablet PO 10 mg QAM STACEY Administration Lorazepam 0.25 mg 07/03/24 09:07 Lorazepam Inj (*Crx) 2 Mg/Ml Vial IV PUSH Q4H PRN Anxiety Memantine 5 mg 07/02/24 09:00 11/08/24 09:34 Memantine 5 Mg Tablet PO 5 mg QAM STACEY Administration Olanzapine 2.5 mg 07/02/24 22:00 07/02/24 22:36 Olanzapine 2.5 Mg Tablet PO Not Given BID STACEY Pantoprazole Sodium 40 mg 06/28/24 09:00 07/02/24 09:34 Pantoprazole 40 Mg Tablet PO 40 mg QAM STACEY Administration Polyethylene Glycol 17 gm 06/28/24 04:21 Polyethylene Glycol 3350 17 Gm Powd.Pack PO DAILY PRN Constipation Potassium Chloride 40 meq 06/30/24 09:00 07/02/24 09:34 Potassium Chloride 20 Meq Packet (For Liquid) PO 40 meq DAILY STACEY Administration Senna/Docusate Sodium 1 tab 06/28/24 09:00 07/02/24 09:34 Senna/Docusate Sodium Tablet PO 1 tab DAILY STACEY Administration Vitamin D 2,000 units 06/28/24 09:00 07/02/24 09:34 Cholecalciferol 1,000 Units Tablet PO 2,000 units DAILY STACEY Administration Radiology Results: ITS Impressions Hip/Pelvis X-Ray 06/27/24 18:39 IMPRESSION: Mild left hip osteoarthritis No pelvic or left hip fracture or dislocation is detected Head CT 06/27/24 18:54 IMPRESSION: No skull fracture or acute intracranial finding or significant change since earlier today Cervical Spine CT 06/27/24 18:59 IMPRESSION: Moderate to moderately severe cervical spondylosis; no fracture or dislocation or locked facet Chest CT 06/27/24 19:57 IMPRESSION: Multiple left rib fractures; resolution of pneumothorax since 05/25 Moderate bilateral pleural effusions, associated compressive bilateral lower lobe atelectasis Chest X-Ray 07/03/24 00:12 IMPRESSION: Large right and small left-sided pleural effusions (increased from prior). Mild pulmonary vascular congestion Possible early infiltrate within the right mid to lower lung field. Labs Labs: Laboratory Results - last 24 hr 07/01/24 07/02/24 07/03/24 14:40 21:11 05:11 Puncture Site Left radial ABG pH 7.406 ABG pCO2 42.2 ABG pO2 102.4 H ABG PO2/FiO2 Ratio 3.66 ABG HCO3 25.9 ABG O2 Saturation 97.7 ABG O2 Content 15.5 L ABG Base Excess 1.1 A-a Gradient 47.4 Oxyhemoglobin 96.8 Carboxyhemoglobin 0.4 Methemoglobin 0.2 Reduced Hemoglobin 2.6 Total Hemoglobin 11.3 L O2 Delivery Device Nasal cannula O2 Liters/Min 2.0 FiO2 28 Homocysteine 10.5 H Urine Color Yellow Urine Appearance Cloudy H Urine pH 5.5 Ur Specific [place] 1.011 Urine Protein Trace Urine Glucose (UA) Negative Urine Ketones 1+ H Ur Blood (Man) Negative Urine Nitrate Negative Urine Bilirubin Negative Urine Urobilinogen 1.0 Add Ur Microanalysis Reviewed Leukocyte Esterase Rfl Trace H Urine RBC 3-5 H Urine WBC 0-5 Ur Squamous Epith Cells Occasional Urine Bacteria 4+ H Urine Casts 11-20 Quality VTE Prophylaxis VTE prophylaxis: mechanical ordered
[2024-07-03] MEDS: CEFEPIME 2 GM/NS 50 ML 2 GM/50 ML BAG IVPB ×2 (09:49→20:53)
[2024-07-03 10:09] VITALS: O2SAT 95
[2024-07-03] MEDS: LORazepam INJ (*CRX) 2 MG/ML VIAL 0.25 MG IV PUSH (10:29)
[2024-07-03 11:02] VITALS: BMI 10.0
[2024-07-03] MEDS: LORazepam INJ (*CRX) 2 MG/ML VIAL 0.5 MG IV PUSH (13:06)
[2024-07-03 14:00] VITALS: BP 148/53; PULSE 94; RESP 26; TEMP 36.4; O2SAT 98
--- NOTE | 2024-07-03 15:53 | PC.NURSE ---
On 07/03/24, the [facility], Salma, provided care and [facility]. I have reviewed the [employer]'s documentation and agree with the findings.
[2024-07-03 21:15] VITALS: BP 162/76; PULSE 123; RESP 24; TEMP 37.2; O2SAT 96
[2024-07-04] MEDS: LORazepam INJ (*CRX) 2 MG/ML VIAL 0.5 MG IV PUSH (00:54)
[2024-07-04 03:30] VITALS: RESP 32; O2SAT 78
[2024-07-04 03:37] VITALS: BP 194/92; PULSE 126; RESP 32; TEMP 37; O2SAT 78
[2024-07-04] MEDS: MORPHINE SULFATE (*CRX) 4 MG/ML INJ IV PUSH (04:26)
--- NOTE | 2024-07-04 10:06 | P.DN_ITS ---
Discharge Summary Date and Time Date of : 07/04/24 Time of : 04:50 Provider Pronounced By: 2 RNs Name of First RN That Pronounced: cassie soto Name of Second RN That Pronounced: Josr Ahn Probable Cause of Probable Cause of : advanced dementia, pneumonia leading to card/resp arrest Summary Hospital Course: Kirstin Reyez is a 84 year old female with history of dementia who has been agitated and somewhat aggressive to staff. Patient has been falling at her facility.. She is requiring caring staff to be by her side on a one-to-one basis. she was admitted to the hospital for frequent falls. CT scan the chest has demonstrated resolution the pneumothorax. Multiple rib fractures were noted on left side. Moderate bilateral pleural effusion with associated compression lower lobe atelectasis was noted. She was unable to communicate. Neurology was consulted to help to optimize dementia medication. She was started on namenda and ativan prn, she was also had seroquel po- most of the time, she was not able to take PO meds. She was able to take few bites at a time but inconsistently. She required PRN IM seroquel just to help her relax a little bit. Her ua was checked and chest xray completed to rule out other possible sources for her agitation. She was stared on IV antibiotics to cover pneumonia. It was very difficult to find placement for pt as a lot of facilites would not ecept pt with aggressive behavior. 07/03 plan of care was discussed with Martine, daughter and Kylie and it was decided to proceed with hospice. Care coordination was notified ans hospice saw pt 07/04. Pt 07/04 at 0450 and pronounced per two RNs. Additional Data Confirmation of as documented by pronouncing clinician: Pupillary Reflex, Palpable Pulses, Response to Stimuli and Breath Sounds Name of Provider Notified: none Time Provider Notified: 04:50 Traffic Sign Erection Supervisor Notified: Yes Date [facility] Notified of : 07/04/24 Time [facility] Notified of : 04:56
[2024-07-06 05:29] LABS: Methylmalonic Acid 70 nmol/L (85-423)
== END 2024-07-04 04:50 | disposition expired | DRG 884 ==
LOC: ANHED 22:03 → ANH3MEDSUR 22:59
PROVIDERS: Hospitalist; Physician Assistant; Psychiatry & Neurology Neurology; Admitting Provider Internal Medicine; Emergency Provider Physician Assistant; PCP Family Medicine; Visit Provider Nurse Practitioner
DX: F03.918 Unspecified dementia, unspecified severity, with other behavioral disturbance (principal); J18.9 Pneumonia, unspecified organism; F05 Delirium due to known physiological condition; J90 Pleural effusion, not elsewhere classified; F03.92 Unspecified dementia, unspecified severity, with psychotic disturbance; E86.0 Dehydration; R29.6 Repeated falls; T88.59XA Other complications of anesthesia, initial encounter; I46.8 Cardiac arrest due to other underlying condition; I10 Essential (primary) hypertension; E78.5 Hyperlipidemia, unspecified; M16.12 Unilateral primary osteoarthritis, left hip; K21.9 Gastro-esophageal reflux disease without esophagitis; E87.6 Hypokalemia; E78.2 Mixed hyperlipidemia; D32.0 Benign neoplasm of cerebral meninges; E83.42 Hypomagnesemia; K44.9 Diaphragmatic hernia without obstruction or gangrene; M81.0 Age-related osteoporosis without current pathological fracture; W19.XXXA Unspecified fall, initial encounter; S22.42XG Multiple fractures of ribs, left side, subsequent encounter for fracture with delayed healing; Z85.3 Personal history of malignant neoplasm of breast; Z90.49 Acquired absence of other specified parts of digestive tract; Z90.710 Acquired absence of both cervix and uterus; Z90.722 Acquired absence of ovaries, bilateral
CPT/HCPCS: 36415; 36600; 70450; 71045; 71250; 72125; 73502; 80048; 80053; 81001; 82306; 82375; 82607; 82746; 82805; 83050; 83090; 83735; 83921; 84132; 85018; 85025; 94640; 96365; 96366; 96372; 96375; 96376; 97110; 97116; 97161; 97166; 97530; 99285; A9270; G0378; J0692; J1940; J2060; J2270; J2359; J3475; J3480; J7030; J7040; J7120